=== PATIENT | male | born 1955 | race Caucasian/White ===

== ENCOUNTER 2016-09-23 08:22 | Outpatient (CLI) | payer MEDICARE, OTHER ==
[~2016-09-23] VITALS: Ht 190.5 cm; Wt 155.1 kg
[2016-09-23 08:32] VITALS: BP 166/98
[2016-09-23] MEDS ORDERED: ASCO-262 PO (08:52)
[2016-09-23] MEDS ORDERED: POLY255P PO (08:52)
[2016-09-23] MEDS ORDERED: SAW450CA4 PO (08:52)
[2016-09-23] MEDS ORDERED: ZINC50TA51 PO (08:52)
[2016-09-23] MEDS ORDERED: MULT-166 PO (08:52)
== END 2016-09-23 09:15 | disposition home or self-care (01) ==
LOC: PREOP 08:22
PROVIDERS: ATTEND Surgery
DX: Z01.818 Encounter for other preprocedural examination (principal); K80.20 Calculus of gallbladder without cholecystitis without obstruction; N43.40 Spermatocele of epididymis, unspecified
CPT/HCPCS: 87081

== ENCOUNTER 2016-09-30 06:25 | Day surgery (SDC) | payer MEDICARE, OTHER ==
[2016-09-30] VITALS (9 sets, daily range): BP systolic 121–170; BP diastolic 53–93
[~2016-09-30] VITALS: Ht 190.5 cm; Wt 154.2 kg
[~2016-09-30 06:25] MED LIST: ASCO-262 PO; MULT-166 PO; POLY255P PO; SAW450CA4 PO; ZINC50TA51 PO; ceFAZolin 2 GM/50 ML NS 50 ML ONE; metroNIDAZOLE 500MG/100ML IVPB 100 ML ONE
[2016-09-30] MEDS ORDERED: BUP/EPI 0.5% 1:200,000 (MARCAINE) 10ML VIAL IJ ONE ×2 (06:49→08:00)
--- NOTE | 2016-09-30 06:56 | Progress Note-Pre Operative ---
Pre-Operative Progress Note H&P Reviewed The H&P was reviewed, patient examined and no changes noted. Date Seen by Provider: Sep 30, 2016 Time Seen by Provider: 06:56 Date H&P Reviewed: Sep 30, 2016 Time H&P Reviewed: 06:56 Pre-Operative Diagnosis: LT SPERMATOCELE AND CHOLELITHIASIS TIM SHEPHERD MD Sep 30, 2016 6:56 am
--- NOTE | 2016-09-30 06:57 | Progress Note-Post Operative ---
Post-Operative Progess Note Surgeon (s)/Wash Helper (s) Surgeon TIM SHEPHERD MD Wash Helper: N/A Pre-Operative Diagnosis LT SPERMATOCELE AND CHOLELITHIASIS Post-Operative Diagnosis SAME Procedure & Operative Findings Date of Procedure 09/30/16 Procedure Performed/Findings LT SPERMATOCELECTOMY Anesthesia Type GENERAL Estimated Blood Loss Estimated blood loss (mL): NEGLIGIBLE Specimens/Packing Specimens Removed SPERMATOCELE Packin/4" DRAIN TIM SHEPHERD MD Sep 30, 2016 6:57 am
[2016-09-30] MEDS ORDERED: LIDOCAINE PF 2% 5 ML (XYLOCAINE) VIAL ONE (07:06)
[2016-09-30] MEDS ORDERED: SUCCINYLCHOLINE INJ 100 MG/5 ML SYR ONE (07:06)
[2016-09-30] MEDS ORDERED: proPOfol 200 MG/20 ML (DIPRIVAN) VIAL IV ONE (07:06)
[2016-09-30] MEDS ORDERED: ROCURONIUM 50 MG/5 ML (ZEMURON) VIAL IV ONE (07:06)
[2016-09-30] MEDS ORDERED: fentaNYL INJECTION 250 MCG/5 ML AMP ONE (07:06)
[2016-09-30] MEDS ORDERED: DEXAMETHASONE 10 MG/ML (DECADRON) 1 ML VIAL ONE (07:06)
[2016-09-30] MEDS ORDERED: ONDANSETRON 4 MG/2 ML (SDV) Z0FRAN ONE (07:06)
[2016-09-30] MEDS ORDERED: SEVOFLURANE (ULTANE) 15 ML INHAL SOLN ONE ×4 (07:06→10:25)
[2016-09-30] MEDS ORDERED: MIDAZOLAM 2 MG/2 ML (VERSED) VIAL ONE (07:07)
[2016-09-30] MEDS ORDERED: FAMOTIDINE 20MG/2ML IV (PEPCID) IV ONE (07:15)
[2016-09-30] MEDS ORDERED: ceFAZolin 2 GM/NS 50 ML IV ONE (07:15)
[2016-09-30] MEDS ORDERED: metroNIDAZOLE 500 MG/100 ML IVPB (PRE-MIX) IV ONE (07:15)
[2016-09-30] MEDS: LACTATED RINGERS 1,000 ML IV PRN ×3 (07:16→10:38)
--- NOTE | 2016-09-30 07:51 | Progress Note-Pre Operative ---
Pre-Operative Progress Note H&P Reviewed The H&P was reviewed, patient examined and no changes noted. Date Seen by Provider: Sep 17, 2016 Time Seen by Provider: 11:50 Date H&P Reviewed: Sep 30, 2016 Time H&P Reviewed: 07:51 Pre-Operative Diagnosis: Gallstones. Need for screening for colon cancer ROSIBEL DESHPANDE MD Sep 30, 2016 7:51 am
[2016-09-30] MEDS ORDERED: GLYCOPYRROLATE 0.2 MG/ML (ROBINUL) 2 ML VIAL ONE (09:42)
[2016-09-30] MEDS ORDERED: NEOSTIGMINE (BLOXIVERZ ) 1 MG/1ML 10 ML VIAL ONE (09:42)
[2016-09-30] MEDS ORDERED: morphine INJ 10 MG/ML 1ML (SYR OR VIAL) ONE (10:07)
[2016-09-30] MEDS ORDERED: LACTATED RINGERS 1,000 ML IV ONE ×2 (10:25→10:30)
[2016-09-30] MEDS: morphine INJ 10 MG/ML 1ML (SYR OR VIAL) IVP PRN ×2 (10:28→10:34)
[2016-09-30] MEDS: HYDROmorphone (DILAUDID) 2 MG/ML VIAL IVP PRN ×3 (10:40→11:00)
[2016-09-30] MEDS ORDERED: ONDANSETRON 4 MG/2 ML (SDV) Z0FRAN IVP PRN (10:45)
--- NOTE | 2016-09-30 11:22 | Operative Report ---
Operative Report Date of Procedure/Surgery Sep 30, 2016 Surgeon (s) ROSIBEL DESHPANDE MD Manager Of Development (s): N/A Post-Operative Diagnosis gallstones with chronic cholecystitis Sigmoid diverticulosis Procedure Performed 1.Robotic assisted cholecystectomy 2. Colonoscopy to cecum Description of Procedure Anesthesia Type: General Estimated blood loss (mL): NEGLIGIBLE Specimen(s) collected/removed gallbladder Packin/4" DRAIN Description of the Procedure Indication for procedure: This gentleman presented with gallstones and chronic cholecystitis. In addition, he was also scheduled to undergo excision of the spermatocele by the urologist. With regard to gallstones, he was offered robotic-assisted cholecystectomy. Concomitant screening colonoscopy was also arranged. Informed consent was obtained after reviewing the operative details and complications of postoperative bile leak, wound infection and cardiorespiratory dysfunction. Description of the procedure: He was placed supine on the operative table and general anesthesia induced using an endotracheal tube. Prophylactic antibiotics were administered intravenously. The urologist Dr. Meeks had initially completed his procedure and left the [place] drain. Abdomen was prepared and draped in the usual sterile manner. A supraumbilical incision was made and pneumoperitoneum established using a Veress needle. A 12 mm trocar was placed and anatomy visualized using the high definition, 3- dimensional laparoscope associated with da Guillermo system. Under direct view, I placed an 8 mm trocar over the right side abdomen and the visualized omentum was adherent to the subumbilical region. Therefore, I placed a 5 mm trocar over the right upper quadrant and took down the omental adhesions under direct view using the 3-dimensional laparoscope introduced via the right abdominal trocar. Subsequently, another 8 mm trocar was placed over the left side of the abdomen, followed by a 5 mm trocar over the left upper quadrant. The robotic system was then docked in place after placing the patient in reverse Trendelenburg position. Laparoscopic survey confirmed a thickened gallbladder minimal adhesions involving the omentum.the fundus of the gallbladder was retracted cephalad and omentum taken down using the hook cautery. Subsequently, the infundibulum of the gallbladder was grasped with a Cadiere forceps and peritoneum around Calot' s triangle incised using hook cautery, delineating the cystic duct and artery.both were controlled between locking clips. Cholecystectomy was then completed using the hook cautery as well. Spillage of bile and gallstones resulted therefore subhepatic space was thoroughly irrigated with saline. The spilled stones were placed in an Endo Catch bag along with the gallbladder the end of the operation The fascia over the supraumbilical incision was then closed using #1 Vicryl using the Ted Devendra device under direct view. Skin incisions were closed using 4-0 Vicryl, in a subcuticular fashion. 0.5 percent Marcaine with epinephrine was infiltrated along the incisions, both preemptively and at the conclusion of the operation. Once the incisions were covered with sterile dressing, we proceeded with colonoscopy. Colonoscopy: Digital rectal examination was unremarkable. The colonoscope was then introduced in the rectum and advanced to the cecum. The scope was then withdrawn slowly and the mucosa examined in a systematic fashion Finding: Sigmoid diverticulosis. No polyps were found. he tolerated the procedures well, was extubated in the operative and taken to recovery room in a stable condition Findings of the Procedure see operative report Allergies and Home Medications Allergies Coded Allergies: No Known Drug Allergies (Unverified , 09/23/16) Home Medications Ascorbate Calcium 500 Mg Tablet, 500 MG PO DAILY, (Reported) Multivitamin with Minerals 1 Each Tablet, 1 EACH PO DAILY, (Reported) Polyethylene Glycol 3350 255 Gm Powder, 17 GM PO DAILY, (Reported) Saw [place] Fruit 450 Mg Capsule, 1,800 MG PO DAILY, (Reported) take 4 (450mg) tabs Zinc Amino Acid Chelate 50 Mg Tablet, 50 MG PO DAILY, (Reported) ROSIBEL DESHPANDE MD Sep 30, 2016 11:22 am
[2016-09-30] MEDS ORDERED: HYDR-3820 PO (11:23)
[2016-09-30] MEDS ORDERED: CEPH-507 PO (11:24)
--- NOTE | 2016-09-30 11:25 | Discharge Inst-Simple/Standard ---
Discharge Inst-Standard Discharge Medications New, Converted or Re-Newed RX: RX on Chart Patient Instructions/Follow Up Plan of Care/Instructions/FU: follow-up with Dr. Meeks tomorrow to have the drain removed. Follow-up with me in 3 weeks. Incentive spirometry. Band-Aids of in 48 hours. Activity as Tolerated: Yes Discharge Diet: No Restrictions ROSIBEL DESHPANDE MD Sep 30, 2016 11:25 am
--- NOTE | 2016-09-30 14:11 | OPERATIVE REPORT ---
DATE OF SERVICE: 09/30/2016 PREOPERATIVE DIAGNOSIS: Left spermatocele. POSTOPERATIVE DIAGNOSIS: Left spermatocele. OPERATION PERFORMED: Left spermatocelectomy. SURGEON: Tim Shepherd MD ANESTHESIA: General. COMPLICATIONS: None. PROCEDURE: Under satisfactory general anesthesia with the patient in supine position, the abdomen, genitalia, and thigh were prepped and draped in the usual sterile fashion. Incision was made in the median raphe of the scrotum, carried through the left scrotal compartment. The testicle as well as the medium-sized spermatocele was delivered into the surgical opening. The testicle was removed and the bleeders were cauterized. The spermatocele sac was fully excised. The edges were ligated and were sutured with running 4-0 chromic catgut and hemostatic, and also to prevent recurrence of the spermatocele. Bleeders were cauterized and hemostasis was complete. The testicle was replaced into the scrotum, which was drained with a quarter of an inch Lisa drain brought through a separate stab wound at the bottom of the scrotum and secured in position with 3-0 chromic catgut. Closure was performed in 2 layers after replacing the testicle inside the scrotum, the dartos with running 3-0 chromic catgut, and the skin with interrupted 4-0 Vicryl. Telfa, fluff, and scrotal support were applied. Estimated blood loss was negligible. Needle, sponge, and instrument counts were correct x2. The patient tolerated the procedure and anesthesia well, and Dr. Pereira proceeded with his surgery that he will dictate. Job ID: [id number] DocumentID: [id number] Dictated Date: 09/30/2016 08:51:14 Satellite Project Site Monitor Date: 09/30/2016 10:51:03 Dictated By: TIM SHEPHERD MD
[2016-09-30] MEDS ORDERED: ONDANSETRON 4 MG (ZOFRAN) ORAL DISSOLVE TAB PO PRN (17:30)
[2016-09-30] MEDS: HYDROcodone/APAP 5 MG/325 MG (LORTAB) TAB PO PRN (19:54)
[2016-10-01] MEDS: HYDROcodone/APAP 5 MG/325 MG (LORTAB) TAB PO PRN ×2 (00:39→06:57)
[2016-10-01 04:00] VITALS: BP 134/63
[2016-10-01 07:39] VITALS: BP 135/63
[2016-10-01 11:49] VITALS: BP 135/66
[2016-10-01 12:00] VITALS: BP 135/66
--- NOTE | 2016-10-01 12:12 | Progress Note-Urology ---
Progress Note-Urology Progress Notes/Assess & Plan Progress/Assessment & Plan RECOVERED WELL. VOIDED POST DC LOPEZ WITH NO ISSUES. SCROTUM LOOKS WELL, MINIMAL BLEEDING, PAMELA DC'ED INSTRUCTIONS AND F/U APPOINTMENT GIVEN WELL RX Final Diagnosis LT SPERMATOCELE TIM SHEPHERD MD Oct 01, 2016 12:12 pm
--- NOTE | 2016-10-01 13:14 | Anesthesia-General Post-Op ---
General Patient Condition Mental Status/LOC: Same as Preop Cardiovascular: Satisfactory Nausea/Vomiting: Absent Respiratory: Satisfactory Pain: Controlled Complications: Absent Post Op Complications Complications None Follow Up Care/Instructions Patient Instructions None needed. Anesthesia/Patient Condition Patient Condition Patient is doing well, no complaints, stable vital signs, no apparent adverse anesthesia problems. No complications reported per nursing. CAROLYN PIMENTEL CRNA Oct 01, 2016 13:14
== END 2016-10-01 13:01 | disposition home or self-care (01) ==
LOC: SDC 06:25 → 4TH 16:35 → SDC 10-01 13:01
PROVIDERS: ATTEND Urology
DX: N43.40 Spermatocele of epididymis, unspecified (principal); K80.20 Calculus of gallbladder without cholecystitis without obstruction; K57.30 Diverticulosis of large intestine without perforation or abscess without bleeding; Z79.899 Other long term (current) drug therapy; I10 Essential (primary) hypertension; Z87.891 Personal history of nicotine dependence; F32.9 Major depressive disorder, single episode, unspecified; E66.01 Morbid (severe) obesity due to excess calories; Z68.41 Body mass index [BMI] 40.0-44.9, adult
CPT/HCPCS: 94664

== ENCOUNTER 2019-10-04 08:56 | Emergency (ER) | payer MEDICARE ==
[~2019-10-04] VITALS: Ht 190.5 cm; Wt 159.1 kg
[~2019-10-04 08:56] MED LIST changes: +ACHYD1T PO; +CEPH-507 PO; -POLY255P PO; +POLY255P16 PO; -SAW450CA4 PO; +SAW450CA7 PO; -ceFAZolin 2 GM/50 ML NS 50 ML ONE; -metroNIDAZOLE 500MG/100ML IVPB 100 ML ONE
[2019-10-04] MEDS ORDERED: predniSONE 20 MG TAB PO ONE (09:15)
--- NOTE | 2019-10-04 09:22 | ED General ---
General Chief Complaint: Neuro-Stroke Like Symptoms Stated Complaint: FACIAL DROOPING History of Present Illness Date Seen by Provider: Oct 04, 2019 Time Seen by Provider: 09:17 Initial Comments Patient presenting to the emergency department for evaluation of 2 primary complaints. He says that a day or 2 ago he started noticing dripping on his left face that he cannot close his eye completely. He says that she also has some soreness in his left ear that he has been dealing with for about a month and his primary care provider Dr. king has him on some eardrops currently and appear to be helping somewhat. He denies any pain other than his ear no fevers chills nausea vomiting or other weakness numbness or tingling other than the left side of the face being weaker than the right. He says he is not a diabetic. He is in no obvious distress. Allergies and Home Medications Allergies Coded Allergies: No Known Drug Allergies (Unverified , 09/23/16) Home Medications Ascorbate Calcium 500 Mg Tablet, 500 MG PO DAILY, (Reported) Cephalexin 500 Mg Capsule, 500 MG PO BID Prescribed by: ROSIBEL DESHPANDE on 09/30/16 1124 Hydrocodone Bit/Acetaminophen 1 Each Tablet, 1 TAB PO Q4H PRN for PAIN-MILD TO MODERATE Prescribed by: ROSIBEL DESHPANDE on 09/30/16 1123 Multivitamin with Minerals 1 Each Tablet, 1 EACH PO DAILY, (Reported) Polyethylene Glycol 3350 255 Gm Powder, 17 GM PO DAILY, (Reported) Saw [place] Fruit 450 Mg Capsule, 1,800 MG PO DAILY, (Reported) take 4 (450mg) tabs Zinc Amino Acid Chelate 50 Mg Tablet, 50 MG PO DAILY, (Reported) Patient Home Medication List Home Medication List Reviewed: Yes Review of Systems Review of Systems Constitutional: no symptoms reported EENTM: ear pain Respiratory: no symptoms reported Cardiovascular: no symptoms reported Gastrointestinal: no symptoms reported Genitourinary: no symptoms reported Musculoskeletal: no symptoms reported Skin: no symptoms reported Psychiatric/Neurological: Weakness Hematologic/Lymphatic: No Symptoms Reported Immunological/Allergic: no symptoms reported Past Xnhcknd-Vtnlaj-Xrlupv Hx Patient Social History Alcohol Beverage of Choice: Beer, Whiskey Former Smoker, Quit: Sep 23, 2001 Recent Foreign Travel: No Contact w/Someone Who Travel: No Recent Hopitalizations: No Seasonal Allergies Seasonal Allergies: Yes (at times) Past Medical History Surgeries: Yes (umb hernia) Respiratory: No Cardiac: Yes (occasional edema) Neurological: No Genitourinary: Yes (overactive bladder) Gastrointestinal: Yes (umbillical hernia, fatty liver) Chronic Constipation, Gall Bladder Disease Musculoskeletal: Yes (pinched nerve in back, causes pain) Endocrine: No HEENT: No Loss of Vision: Denies Hearing Impairment: Denies Cancer: No Depression Integumentary: No Blood Disorders: No Family Medical History Alcoholism 19 FATHER FH: bipolar disorder G8 BROTHER FH: mental illness 19 MOTHER FH: suicide 19 FATHER Physical Exam Vital Signs Capillary Refill : Height, Weight, BMI Height: 6'3.00" Weight: 340lbs. 0.0oz. [id number]; 42.5 BMI Method: General Appearance: No Apparent Distress, WD/WN HEENT: PERRL/EOMI, TMs Normal Neck: Supple Respiratory: No Respiratory Distress Cardiovascular: Regular Rate, Rhythm Back: Normal Inspection Extremity: Normal Capillary Refill, Normal Inspection Neurologic/Psychiatric: Alert, Oriented x3, Facial Droop (patient has moderate left-sided facial droop in addition to just being able to close his left eye but is definitely unequal in the right and he has minimal upper movement of his left forehead when trying to raise his eyebrows) Skin: Warm/Dry Progress/Results/Core Measures Suspected Sepsis SIRS Temperature: Pulse: Respiratory Rate: Blood Pressure / Mean: Results/Orders My Orders Orders - KELSI MAKI DO Prednisone Tablet (Deltasone Tablet) (10/04/19 09:15) Vital Signs/I&O Capillary Refill : Progress Note : Progress Note 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 Will start him on 80 mg of prednisone daily and will go ahead and start him on antivirals as well. I recommended using artificial tears during the day and then at night using erythromycin ointment and taping his eye shut. Patient told to follow with his primary care provider within 2-3 days and come back to the ED sooner with any new worsening pain neurologic changes with or general concerns. Departure Impression Primary Impression: Monson's palsy Disposition: 01 HOME, SELF-CARE Condition: Stable Departure-Patient Inst. Referrals: SELF,JOSE QURESHI (PCP/Family) Primary Care Physician Patient Instructions: Monson's Palsy Add. Discharge Instructions: During the day put artificial tears in your eyes every hour. At night, tape your eye shut after putting the ointment in the eye. Follow with primary as soon as you can and come back here with any new or worsening symptoms. Thank you. All discharge instructions reviewed with patient and/or family. Voiced und erstanding. Scripts Erythromycin Base (Erythromycin Opthalmic Ointment) 1 Gm Oint...g. 0 OP qhs, #1 TUBE 1/2 inch Prov: KELSI MAKI DO 10/04/19 Valacyclovir HCl (Valtrex) 1,000 Mg Tablet 1000 MG PO BID, #12 TAB Prov: KELSI MAKI DO 10/04/19 Prednisone (Prednisone) 20 Mg Tab 80 MG PO DAILY, #24 TAB 0 Refills Prov: KELSI MAKI DO 10/04/19 KELSI MAKI DO Oct 04, 2019 09:22
[2019-10-04] MEDS ORDERED: VALA10004 PO (09:25)
[2019-10-04] MEDS ORDERED: ERYT1OIN6 OP (09:25)
[2019-10-04] MEDS ORDERED: PRD20T PO (09:25)
[2019-10-04 09:38] VITALS: BP 181/138
== END 2019-10-04 09:38 | disposition home or self-care (01) ==
LOC: EDUNIT# 08:56 → ER FS 08:59
DX: G51.0 Bell's palsy (principal); Z87.891 Personal history of nicotine dependence
CPT/HCPCS: 99283

== ENCOUNTER 2021-03-06 11:10 | Inpatient (IN) | payer MEDICARE ==
[~2021-03-06] VITALS: Ht 190.5 cm; Wt 121.1 kg
[~2021-03-06 11:10] MED LIST changes: +ERYT1OIN6 OP; +PRD20T PO; +VALA10004 PO
--- NOTE | 2021-03-06 11:20 | ED General ---
General Stated Complaint: LOW STATS Source of Information: Patient, EMS Exam Limitations: Other (clinical ) History of Present Illness Date Seen by Provider: Mar 06, 2021 Time Seen by Provider: 11:10 Initial Comments Patient is a 66-year-old male with history of polysubstance abuse who is found confused, disheveled, covered in feces and urine at a local hotel. EMS and police were called to assist with the eviction of patient. Patient tachycardic, confused with labored breathing on EMS arrival. Patient noted to have excoriations to his thighs, diabetic foot sore and ulcer to scrotum. Patient is initially tachycardic in 120s and hypertensive tachypneic with inability to initially to obtain accurate oxygen saturation. Timing/Duration: Other Severity: Moderate Modifying Factors: improves with Other Associated Systoms: Other Allergies and Home Medications Allergies Coded Allergies: No Known Drug Allergies (Unverified , 09/23/16) Patient Home Medication List Home Medication List Reviewed: Yes Ascorbate Calcium (Vitamin C) 500 Mg Tablet, 500 MG PO DAILY, (Reported) Entered as Reported by: TERESA TY on 09/23/1652 Cephalexin (Keflex) 500 Mg Capsule, 500 MG PO BID Prescribed by: ROSIBEL DESHPANDE on 09/30/16 112 Erythromycin Base (Erythromycin Opthalmic Ointment) 1 Gm Oint...g., 0 OP qhs Prescribed by: KELSI MAKI on 10/04/19 0925 Hydrocodone Bit/Acetaminophen (HYDROcodone/APAP 10/325 TABLET) 1 Each Tablet, 1 TAB PO Q4H PRN for PAIN-MILD TO MODERATE Prescribed by: ROSIBEL DESHPANDE on 09/30/16 1123 Multivitamin with Minerals (Multivitamins with Minerals) 1 Each Tablet, 1 EACH PO DAILY, (Reported) Entered as Reported by: TERESA TY on 09/23/16 0852 Polyethylene Glycol 3350 (Polyethylene Glycol 3350) 255 Gm Powder, 17 GM PO DAILY, (Reported) Entered as Reported by: TERESA TY on 09/23/16 08 Prednisone (Prednisone) 20 Mg Tab, 80 MG PO DAILY Prescribed by: KELSI MAKI on 10/04/19 0925 Saw [place] Fruit (Saw [place]) 450 Mg Capsule, 1,800 MG PO DAILY, (Reported) Entered as Reported by: TERESA TY on 09/23/16 0852 Valacyclovir HCl (Valtrex) 1,000 Mg Tablet, 1,000 MG PO BID Prescribed by: KELSI MAKI on 10/04/19 0925 Zinc Amino Acid Chelate (Zinc) 50 Mg Tablet, 50 MG PO DAILY, (Reported) Entered as Reported by: TERESA TY on 09/23/16 0852 Review of Systems Review of Systems Constitutional: see HPI EENTM: see HPI Respiratory: see HPI Cardiovascular: see HPI Gastrointestinal: see HPI Genitourinary: see HPI Musculoskeletal: see HPI Skin: see HPI Psychiatric/Neurological: See HPI Hematologic/Lymphatic: See HPI Immunological/Allergic: see HPI All Other Systems Reviewed Negative Unless Noted: Yes Past Tiirpyq-Yprhwt-Susghx Hx Patient Social History Tobacco Use?: Yes Seasonal Allergies Seasonal Allergies: Yes (at times) Past Medical History Surgeries: Yes (umb hernia) Respiratory: No Cardiac: Yes (occasional edema) Neurological: No Genitourinary: Yes (overactive bladder) Gastrointestinal: Yes (umbillical hernia, fatty liver) Chronic Constipation, Gall Bladder Disease Musculoskeletal: Yes (pinched nerve in back, causes pain) Endocrine: No HEENT: No Loss of Vision: Denies Hearing Impairment: Denies Cancer: No Depression Integumentary: No Blood Disorders: No Family Medical History Alcoholism 19 FATHER FH: bipolar disorder G8 BROTHER FH: mental illness 19 MOTHER FH: suicide 19 FATHER Physical Exam Vital Signs Vital Signs - First Documented 03/06/21 11:10 Pulse Ox 95 O2 Delivery Non Rebreather O2 Flow Rate 15.00 Capillary Refill : Height, Weight, BMI Height: 6'3.00" Weight: 340lbs. 0.0oz. 154.400341mb; 43.00 BMI Method: General Appearance: Other (Disheveled, agitated, tachypneic and confused. Covered in feces) Eyes: Bilateral Eye Normal Inspection, Bilateral Eye PERRL, Bilateral Eye EOMI HEENT: PERRL/EOMI, Other (Dry mucous membranes) Neck: Supple, Other (Surgical scar right neck) Respiratory: Decreased Breath Sounds, Rhonci, Other (Tachypnea) Cardiovascular: Tachycardia Gastrointestinal: Non Tender, Soft Back: Normal Inspection, No CVA Tenderness Neurologic/Psychiatric: Alert, Other (Disoriented to place and time) Skin: Other (Excoriations to thighs, ulcer to scrotum and diabetic pressure ulcer to right great toe pad) Focused Exam Sepsis Stage: Sepsis (11) Lactate Level 03/06/21 12:04: Lactic Acid Level 5.84*H Time of Focused Exam: 11:20 Respiratory: Decreased Breath Sounds, Rhonci Cardiovascular: Tachycardia Skin: rash, rash on exposed areas, ulcerations on exposed areas Lactic Acid Level Laboratory Tests Test 03/06/21 12:04 Lactic Acid Level 5.84 MMOL/L (0.50-2.00) *H Within 3hrs of presentation: Admin fluids, Admin ABX Progress/Results/Core Measures Suspected Sepsis SIRS Temperature: Pulse: Respiratory Rate: Laboratory Tests 03/06/21 11:15: White Blood Count 16.7H Blood Pressure / Mean: 03/06/21 12:04: Lactic Acid Level 5.84*H Laboratory Tests 03/06/21 11:15: INR Comment 1.3, Platelet Count 492H 03/06/21 12:03: Creatinine 3.41H, Total Bilirubin 1.1H Results/Orders Lab Results Laboratory Tests Test 03/06/21 11:15 03/06/21 11:23 03/06/21 11:29 03/06/21 12:03 Range/Units White Blood Count 16.7 H 4.3-11.0 10^3/uL Red Blood Count 6.05 H 4.30-5.52 10^6/uL Hemoglobin 17.8 H 13.3-17.7 g/dL Hematocrit 58 H 40-54 % Mean Corpuscular Volume 96 80-99 fL Mean Corpuscular Hemoglobin 29 25-34 pg Mean Corpuscular Hemoglobin Concent 31 L 32-36 g/dL Red Cell Distribution Width 15.7 H 10.0-14.5 % Platelet Count 492 H 130-400 10^3/uL Mean Platelet Volume 12.5 H 9.0-12.2 fL Immature Granulocyte % (Auto) 1 % Neutrophils (%) (Auto) 84 H 42-75 % Lymphocytes (%) (Auto) 8 L 12-44 % Monocytes (%) (Auto) 6 0-12 % Eosinophils (%) (Auto) 0 0-10 % Basophils (%) (Auto) 0 0-10 % Neutrophils # (Auto) 14.0 H 1.8-7.8 10^3/uL Lymphocytes # (Auto) 1.4 1.0-4.0 10^3/uL Monocytes # (Auto) 0.9 0.0-1.0 10^3/uL Eosinophils # (Auto) 0.0 0.0-0.3 10^3/uL Basophils # (Auto) 0.1 0.0-0.1 10^3/uL Immature Granulocyte # (Auto) 0.2 H 0.0-0.1 10^3/uL Neutrophils % (Manual) 83 % Lymphocytes % (Manual) 8 % Monocytes % (Manual) 7 % Eosinophils % (Manual) 1 % Metamyelocytes % 1 % Platelet Estimate INCREASED Blood Morphology Comment NORMAL Prothrombin Time 16.3 H 12.2-14.7 SEC INR Comment 1.3 0.8-1.4 Activated Partial Thromboplast Time 39 H 24-35 SEC Urine Color YELLOW Urine Clarity TURBID Urine pH 5.5 5-9 Urine Specific [place] >=1.030 1.016-1.022 Urine Protein TRACE H NEGATIVE Urine Glucose (UA) TRACE H NEGATIVE Urine Ketones NEGATIVE NEGATIVE Urine Nitrite NEGATIVE NEGATIVE Urine Bilirubin 2+ H NEGATIVE Urine Urobilinogen 2.0 < = 1.0 MG/DL Urine Leukocyte Esterase NEGATIVE NEGATIVE Urine RBC (Auto) 1+ H NEGATIVE Urine RBC 2-5 H /HPF Urine WBC 2-5 /HPF Urine Squamous Epithelial Cells RARE /HPF Urine Crystals PRESENT H /LPF Urine Amorphous Sediment FEW SREE URATES H /LPF Urine Bacteria NEGATIVE /HPF Urine Casts PRESENT /LPF Urine Hyaline Casts >50 H /LPF Urine Mucus LARGE H /LPF Urine Culture Indicated NO Urine Opiates Screen NEGATIVE NEGATIVE Urine Oxycodone Screen NEGATIVE NEGATIVE Urine Methadone Screen NEGATIVE NEGATIVE Urine Propoxyphene Screen NEGATIVE NEGATIVE Urine Barbiturates Screen NEGATIVE NEGATIVE Ur Tricyclic Antidepressants Screen NEGATIVE NEGATIVE Urine Phencyclidine Screen NEGATIVE NEGATIVE Urine Amphetamines Screen NEGATIVE NEGATIVE Urine Methamphetamines Screen POSITIVE H NEGATIVE Urine Benzodiazepines Screen NEGATIVE NEGATIVE Urine Cocaine Screen NEGATIVE NEGATIVE Urine Cannabinoids Screen NEGATIVE NEGATIVE Blood Gas Puncture Site LT. BRACHIAL Blood Gas Patient Temperature 37.2 Arterial Blood pH 7.43 7.37-7.43 Arterial Blood Partial Pressure CO2 29 L 35-45 MMHG Arterial Blood Partial Pressure O2 70 L 79-93 MMHG Arterial Blood HCO3 19 L 23-27 MMOL/L Arterial Blood Total CO2 20.1 L 21.0-31.0 MMOL/L Arterial Blood Oxygen Saturation 94 94-100 % Arterial Blood Base Excess -4.0 L -2.5-2.5 MMOL/L Theodore Test YES-POS Blood Gas Ventilator Setting NO Blood Gas Inspired Oxygen 15 LPM NR Sodium Level 162 *H 135-145 MMOL/L Potassium Level 5.2 H 3.6-5.0 MMOL/L Chloride Level 118 H 98-107 MMOL/L Carbon Dioxide Level 21 21-32 MMOL/L Anion Gap 23 H 5-14 MMOL/L Blood Urea Nitrogen 105 *H 7-18 MG/DL Creatinine 3.41 H 0.60-1.30 MG/DL Estimat Glomerular Filtration Rate 19 BUN/Creatinine Ratio 31 Glucose Level 232 H 70-105 MG/DL Calcium Level 8.8 8.5-10.1 MG/DL Corrected Calcium 9.6 8.5-10.1 MG/DL Total Bilirubin 1.1 H 0.1-1.0 MG/DL Aspartate Amino Transf (AST/SGOT) 31 5-34 U/L Alanine Aminotransferase (ALT/SGPT) 23 0-55 U/L Alkaline Phosphatase 104 40-136 U/L Troponin I 0.33 *H <0.30 NG/ML Total Protein 9.0 H 6.4-8.2 GM/DL Albumin 3.0 L 3.2-4.5 GM/DL Test 03/06/21 12:04 03/06/21 13:50 Range/Units Lactic Acid Level 5.84 *H 0.50-2.00 MMOL/L Magnesium Level 4.1 H 1.6-2.4 MG/DL Serum Alcohol < 10 <10 MG/DL My Orders Orders - LUIS PANCHAL DO Cbc With Automated Diff (03/06/21 11:17) Comprehensive Metabolic Panel (03/06/21 11:17) Blood Culture (03/06/21 11:17) Sputum Culture (03/06/21 11:17) Urine Culture (03/06/21 11:17) Protime With Inr (03/06/21 11:17) Partial Thromboplastin Time (03/06/21 11:17) Chest 1 View Ap/Pa Only (03/06/21 11:17) Ed Iv/Invasive Line Start (03/06/21 11:17) Ed Iv/Invasive Line Start (03/06/21 11:17) Vital Signs Adult Sepsis Patie Q15M (03/06/21 11:17) O2 (03/06/21 11:17) Remove Rings In Anticipation O (03/06/21 11:17) Lactic Acid Analyzer (03/06/21 11:17) Ns Iv 1000 Ml (Sodium Chloride 0.9%) (03/06/21 11:30) Arterial Blood Gas (03/06/21 11:17) Ct Head Wo (03/06/21 11:17) Ekg-Prn For Chest Pain Or Rhyt (03/06/21 11:17) Troponin I Fs (03/06/21 11:17) Accucheck Achs ACHS (03/06/21 11:17) Haloperidol Injection (Haldol Injectio (03/06/21 11:30) Manual Differential (03/06/21 11:15) Alcohol (03/06/21 11:57) Drug Screen Stat (Urine) (03/06/21 11:57) Ammonia (03/06/21 12:01) Magnesium (03/06/21 12:01) Piperacillin Sodium/Tazobactam (Zosyn Vi (03/06/21 12:15) Lorazepam Injection (Ativan Injection) (03/06/21 12:30) Ua Culture If Indicated (03/06/21 12:27) Ns Iv 1000 Ml (Sodium Chloride 0.9%) (03/06/21 13:00) Covid 19 Inhouse Test (03/06/21 13:42) Creatine Kinase (03/06/21 13:42) Influenza A And B By Pcr (03/06/21 13:42) Isolation Central Supply Req (03/06/21 13:42) Medications Given in ED Current Medications Medications Dose Ordered Sig/Jessica Route Start Time Stop Time Status Last Admin Dose Admin Haloperidol Lactate 2.5 mg ONCE ONCE IV 03/06/21 11:30 03/06/21 11:31 DC 03/06/21 11:30 2.5 MG Lorazepam 0.5 mg ONCE ONCE IVP 03/06/21 12:30 03/06/21 12:31 DC 03/06/21 12:31 0.5 MG Piperacillin Sod/ Tazobactam Sod 4.5 gm/Sodium Chloride 100 ml @ 200 mls/hr ONCE ONCE IV 03/06/21 12:15 03/06/21 12:44 DC 03/06/21 12:19 200 MLS/HR Vital Signs/I&O 03/06/21 03/06/21 03/06/21 11:10 11:39 11:39 Temp 36.1 Pulse 112 Resp 19 B/P (MAP) 107/82 (90) Pulse Ox 95 O2 Delivery Non Rebreather Non Rebreather Non Rebreather O2 Flow Rate 15.00 15.00 15.00 Capillary Refill : Departure Communication (Admissions) CT head: No acute findings per radiology report. Chest x-ray: Bilateral infiltrates, cardiomegaly EKG: Sinus tach, rate 115, frequent PVCs, nonspecific T wave changes, Patient septic, encephalopathic with pneumonia and acute kidney injury. IV fluids and antibiotics given. Haldol and Ativan given for agitation. Patient is positive for methamphetamines. Vital signs stable on monitor. Dr. Ocasio accepts patient to [facility] [place] [facility]. Covid and CK swabs pending. Critical care time: 45 minutes Impression Primary Impression: Sepsis Additional Impressions: Pneumonia Acute kidney injury Hypernatremia Encephalopathy acute Methamphetamine intoxication Disposition: ADMITTED INPATIENT Condition: Critical Admissions Decision to Admit Reason: Admit from ER (General) Decision to Admit/Date: Mar 06, 2021 Time/Decision to Admit Time: 13:30 (Dr. Ocasio) Departure-Patient Inst. Referrals: JOSE RON MD (PCP/Family) Primary Care Physician LUIS PANCHAL DO Mar 06, 2021 11:20
[2021-03-06 11:30] LABS: BASOPHILS # (AUTO) 0.1 10^3/uL (0.0-0.1); BASOPHILS % (AUTO) 0 % (0-10); EOSINOPHILS % (AUTO) 0 % (0-10); HEMATOCRIT 58 % (40-54); HEMOGLOBIN 17.8 g/dL (13.3-17.7); LYMPHOCYTES # (AUTO) 1.4 10^3/uL (1.0-4.0); LYMPHOCYTES % (AUTO) 8 % (12-44); MEAN CORPUSCULAR HEMOGLOBIN 29 pg (25-34); MEAN CORPUSCULAR HGB CONC 31 g/dL (32-36); MEAN CORPUSCULAR VOLUME 96 fL (80-99); MEAN PLATELET VOLUME 12.5 fL (9.0-12.2); MONOCYTES # (AUTO) 0.9 10^3/uL (0.0-1.0); MONOCYTES % (AUTO) 6 % (0-12); NEUTROPHILS % (AUTO) 84 % (42-75); PLATELET COUNT 492 10^3/uL (130-400); WHITE BLOOD COUNT 16.7 10^3/uL (4.3-11.0)
[2021-03-06] MEDS ORDERED: NS IV 1000 ML 1,000 ML IV SCH (11:30)
[2021-03-06] MEDS ORDERED: HALOPERIDOL 5 MG/ML (HALDOL) VIAL IV ONE (11:30)
[2021-03-06 11:43] LABS: ABG PCO2 29 MMHG (35-45); ABG PH 7.43 (7.37-7.43); ABG PO2 70 MMHG (79-93)
[2021-03-06 11:44] LABS: ABG OXYGEN SATURATION 94 % (94-100); ABG TCO2 20.1 MMOL/L (21.0-31.0)
[2021-03-06 11:46] LABS: ALLENS TEST YES-POS
[2021-03-06 11:47] LABS: INSPIRED O2 15 LPM NR; PATIENT TEMP 37.2; VENTILATOR NO
[2021-03-06 11:55] LABS: INR 1.3 (0.8-1.4); PROTHROMBIN TIME PATIENT 16.3 SEC (12.2-14.7)
[2021-03-06 11:57] LABS: EOSINOPHILS % (MANUAL) 1 %; LYMPHOCYTES % (MANUAL) 8 %; METAMYELOCYTES % 1 %; MONOCYTES % (MANUAL) 7 %; NEUTROPHILS % (MANUAL) 83 %; PLATELET ESTIMATE INCREASED; RBC MORPH NORMAL
[2021-03-06] MEDS ORDERED: PIPERACILLIN SODIUM/TAZOBACTAM 4.5 GM in NS (IVPB) 100 ML IV ONE (12:15)
--- NOTE | 2021-03-06 12:19 | Diagnostic Imaging Report ---
PROCEDURE: CT head without contrast. TECHNIQUE: Multiple contiguous axial images were obtained through the brain without the use of intravenous contrast. Auto Exposure Controls were utilized during the CT exam to meet ALARA standards for radiation dose reduction. INDICATION: Altered mental status. Sepsis. COMPARISON: None. FINDINGS: Congenital absence of the corpus callosum. Moderate to advanced generalized parenchymal volume loss. 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 No CT evidence of an acute territorial infarction. No intracranial hemorrhage, mass effect, hydrocephalus or extra-axial fluid collections. Mucosal thickening in the ethmoid and sphenoid sinuses. The mastoids are clear. Osseous structures are intact. IMPRESSION: 1. No acute intracranial CT findings. 2. Congenital absence of the corpus callosum. Dictated by: Dictated on workstation # [id number]
--- NOTE | 2021-03-06 12:22 | Diagnostic Imaging Report ---
CLINICAL INDICATION: Patient with shortness of air and altered mental status and low oxygen. EXAM: Portable chest x-ray upright view. COMPARISON: None. FINDINGS: There is small amount of patchy airspace opacities involving both upper lobes and left lung base region. There is no pleural effusion or pneumothorax. There is mild cardiomegaly. Pulmonary vasculature is within normal limits. There are hypertrophic spurs involving the thoracic spine. IMPRESSION: 1: There are patchy infiltrates involving both upper lobes and left lower lung field region concerning for infiltrates/pneumonia. 2: There is mild cardiomegaly with no significant pulmonary vascular congestion. Dictated by: Dictated on workstation # [id number]
[2021-03-06] MEDS ORDERED: LORazepam INJ 2 MG/ML (ATIVAN) VIAL IVP ONE (12:30)
[2021-03-06 12:32] LABS: CLARITY,URINE TURBID; COLOR,URINE YELLOW; GLUCOSE, URINE (UA) TRACE (NEGATIVE); KETONES,URINE NEGATIVE (NEGATIVE); LEUKOCYTE ESTERASE ,URINE NEGATIVE (NEGATIVE); NITRITE,URINE NEGATIVE (NEGATIVE); PH,URINE 5.5 (5-9); PROTEIN,URINE TRACE (NEGATIVE)
[2021-03-06 12:42] LABS: AMPHETAMINE SCREEN, URINE NEGATIVE (NEGATIVE); BENZODIAZEPINES SCREEN URINE NEGATIVE (NEGATIVE); COCAINE SCREEN URINE NEGATIVE (NEGATIVE)
[2021-03-06 12:43] LABS: BARBITURATE SCREEN URINE NEGATIVE (NEGATIVE); CANNABINOID SCREEN, URINE NEGATIVE (NEGATIVE); METHADONE STAT NEGATIVE (NEGATIVE); METHAMPHETAMINE SCREEN URINE S POSITIVE (NEGATIVE); OPIATE SCREEN URINE NEGATIVE (NEGATIVE); OXYCODONE STAT NEGATIVE (NEGATIVE); PROPOXYPHENE STAT NEGATIVE (NEGATIVE); TRICYCLIC ANTIDEPRESSANTS SCRE NEGATIVE (NEGATIVE)
[2021-03-06 12:54] LABS: POTASSIUM 5.2 MMOL/L (3.6-5.0)
[2021-03-06 12:55] LABS: CALCIUM 8.8 MG/DL (8.5-10.1); CREATININE SERUM 3.41 MG/DL (0.60-1.30)
[2021-03-06 12:56] LABS: BILIRUBIN,TOTAL 1.1 MG/DL (0.1-1.0)
[2021-03-06] MEDS: NS IV 1000 ML 1,000 ML IV SCH ×2 (13:03→16:49)
[2021-03-06 13:06] LABS: MAGNESIUM 4.1 MG/DL (1.6-2.4)
[2021-03-06 13:20] LABS: BACTERIA,URINE NEGATIVE /HPF; SQUAMOUS EPITHELIAL CELL,UR RARE /HPF
[2021-03-06 13:21] LABS: AMORPHOUS SEDIMENT,UR FEW AMOR URATES /LPF; HYALINE CASTS, URINE >50 /LPF
[2021-03-06 13:22] LABS: BILIRUBIN,URINE 2+ (NEGATIVE)
[2021-03-06 15:45] LABS: AMMONIA 54 UMOL/L (11-32)
[2021-03-06] MEDS ORDERED: MELATONIN 3 MG TABLET PO PRN (16:15)
[2021-03-06] MEDS ORDERED: polyethylene glycoL POWDER 17 GM (MIRALAX) PACK PO PRN (16:15)
[2021-03-06] MEDS ORDERED: ONDANSETRON 4 MG/2 ML (SDV) Z0FRAN IV PRN (16:15)
[2021-03-06] MEDS ORDERED: BISACODYL 10 MG SUPP (DULCOLAX) PR PRN (16:15)
[2021-03-06] MEDS ORDERED: ANTACID SUSP 30 ML UDC (MYLANTA) PO PRN (16:15)
[2021-03-06] MEDS ORDERED: diphenhydrAMINE 25 MG TAB (BENADRYL) PO PRN (16:15)
[2021-03-06] MEDS ORDERED: HYDROmorphone 2 MG/ML VIAL (DILAUDID) IVP PRN (16:15)
[2021-03-06] MEDS ORDERED: NS IV 1000 ML 2,100 ML IV ONE (16:15)
[2021-03-06] MEDS ORDERED: diphenhydrAMINE 50 MG/ML INJ (BENADRYL) IVP PRN (16:15)
[2021-03-06] MEDS ORDERED: HALOPERIDOL 5 MG/ML (HALDOL) VIAL IM PRN (16:15)
[2021-03-06] MEDS ORDERED: LORazepam INJ 2 MG/ML (ATIVAN) VIAL IVP PRN (16:15)
[2021-03-06] MEDS ORDERED: NALOXONE 0.4 MG/ML 1 ML (NARCAN) VIAL IV PRN (16:15)
--- NOTE | 2021-03-06 17:45 | Tele-ICU Consult ---
History of Present Illness History of Present Illness Date Seen by Provider: Mar 06, 2021 Time Seen by Provider: 17:44 Date of Admission Allergies and Home Medications Allergies Coded Allergies: No Known Drug Allergies (Unverified , 09/23/16) Home Medications Ascorbate Calcium 500 Mg Tablet, 500 MG PO DAILY, (Reported) Cephalexin 500 Mg Capsule, 500 MG PO BID Prescribed by: ROSIBEL DESHPANDE on 09/30/16 112 Erythromycin Base 1 Gm Oint...g., 0 OP qhs 1/2 inch Prescribed by: KELSI MAKI on 10/04/19 09 Hydrocodone Bit/Acetaminophen 1 Each Tablet, 1 TAB PO Q4H PRN for PAIN-MILD TO MODERATE Prescribed by: ROSIBEL DESHPANDE on 09/30/16 112 Multivitamin with Minerals 1 Each Tablet, 1 EACH PO DAILY, (Reported) Polyethylene Glycol 3350 255 Gm Powder, 17 GM PO DAILY, (Reported) Prednisone 20 Mg Tab, 80 MG PO DAILY Prescribed by: KELSI MAKI on 10/04/19924 Saw [place] Fruit 450 Mg Capsule, 1,800 MG PO DAILY, (Reported) take 4 (450mg) tabs Valacyclovir HCl 1,000 Mg Tablet, 1,000 MG PO BID Prescribed by: KELSI MAKI on 10/04/19924 Zinc Amino Acid Chelate 50 Mg Tablet, 50 MG PO DAILY, (Reported) Past Medical/Social/Family Hx Patient Social History Tobacco Use?: Yes Smoking Status: Never a Smoker Smokeless Tobacco Frequency: Never a User Use of E-Cig and/or Vaping dev: No E-Cig and/or Vaping Freq: Never a User Substance use?: No Alcohol Use?: No Pt stated abuse/neglect: No Immunizations Up To Date Influenza Vaccine Up-to-Date: No; Not Current Tetanus Booster (TDap): More Than 5 Years Current Status Advance Directives: No Communicates: Verbally Primary Language: Vietnamese Preferred Spoken Language: Vietnamese Is interpretation needed?: No Implanted or Applied Medical D: None Review of Systems Constitutional: see HPI Focused Exam Lactate Level 03/06/21 12:04: Lactic Acid Level 5.84*H 03/06/21 14:25: Lactic Acid Level 3.36*H Height, Weight, BMI Height: 6'3.00" Weight: 340lbs. 0.0oz. 154.238793bt; 28.10 BMI Method: Time of Focused Exam: 11:20 Lactic Acid Level Laboratory Tests Test 03/06/21 14:25 Lactic Acid Level 3.36 MMOL/L (0.50-2.00) *H Exam Exam Patient acknowledged, consented, and participated in this virtual visit which was conducted using real time audio/video Vital Signs Date Time Temp Pulse Resp B/P (MAP) Pulse Ox O2 Delivery O2 Flow Rate FiO2 03/06/21 16:27 37.1 105 27 121/44 92 OxyMask 8.00 03/06/21 14:52 107 17 121/70 94 Room Air 03/06/21 11:39 Non Rebreather 15.00 03/06/21 11:39 36.1 112 19 107/82 (90) Non Rebreather 15.00 03/06/21 11:10 95 Non Rebreather 15.00 Height & Weight Height: 6'3.00" Weight: 340lbs. 0.0oz. 154.441585tp; 28.10 BMI Method: General Appearance: Moderate Distress, Other (Disheveled, agitated, tachypneic and confused. Covered in feces) HEENT: PERRL/EOMI, Other (Dry mucous membranes) Neck: Supple, Other (Surgical scar right neck) Respiratory: Decreased Breath Sounds, Rhonci Cardiovascular: Tachycardia Capillary Refill: Less Than 3 Seconds Neurologic/Psychiatric: Alert, Other (Disoriented to place and time) Skin: Other (Excoriations to thighs, ulcer to scrotum and diabetic pressure ulcer to right great toe pad) Results Lab Laboratory Tests 03/06/21 11:15 03/06/21 12:03 Assessment/Plan Assessment/Plan (Tele-ICU Physician , consultation) Available chart/ vitals / labs / Images reviewed H&P is from ER notes Patient's information available about PMH, Shx, Fhx allergy reviewed in EMR. ROS as per chart and RN report Now in ICU, hemodynamically stable , tachycardic 100 Video assessment done using teleICU camera, rest of exam as per RN Discussed with RN. Consultants: Hospital course: 03/06 - EMS to ER ( found confused, disheveled, covered in feces and urine at a local hotel) - septic , COVID+, PNA , IRASEMA A/P Sepsis - cotn IVF , 2 L received , 2 L NS to be given now PNA bilat and slin infectin - cont abx - Zosyn IRASEMA ( CPK is borderline elevated - cont hydration - patel is in , migh need US if no improvement hypernatremia - dehydration Elevated lactic - follow Encephalopathy - CTH wnl Covid + - hypoxia - 8 L , symptoms /vaccination status unknown -start dexa Iv - check ddimer - might need higher dose AC positive for methamphetamines ( history of polysubstance abuse as per ER note - prn benzo Lines : periph (Central Line Necessity Reviewed) Patel: + OG: Nutrition: Analgesia: Anxiety/ delirium VTE Prophylaxis: hep sq Stress Ulcer Prophylaxis: Glycemic Control: Plans in collaboration with bedside consultants and IM MDs. Discussed with RN to reach out if any questions or concerns A total of 33minutes of critical care time was devoted to this patient today, required to treat and/or prevent further deterioration of critical care con dition ( as above ) . MECHELLE WASHINGTON MD Mar 06, 2021 17:45
[2021-03-06 18:01] LABS: POTASSIUM 5.4 MMOL/L (3.6-5.0)
[2021-03-06 18:07] LABS: CREATININE SERUM 3.39 MG/DL (0.60-1.30)
[2021-03-06] MEDS: PIPERACILLIN SODIUM/TAZOBACTAM 4.5 GM in NS (IVPB) 100 ML IV SCH (18:09)
[2021-03-06] MEDS: D5 1/2 NS 1000 ML IV SOLUTION 1,000 ML IV SCH (18:09)
[2021-03-06 18:27] VITALS: BP 148/86
[2021-03-06 18:42] LABS: ABG BASE EXCESS -4.3 MMOL/L (-2.5-2.5); ABG OXYGEN SATURATION 96 % (94-100); ABG PCO2 63 MMHG (35-45); ABG PO2 106 MMHG (79-93); ABG TCO2 24.7 MMOL/L (21.0-31.0)
[2021-03-06 18:48] LABS: ABG PH 7.19 (7.37-7.43)
[2021-03-06 18:49] LABS: ALLENS TEST POS; INSPIRED O2 8L; PATIENT TEMP 98.4; VENTILATOR NO
[2021-03-06 19:05] VITALS: BP 129/73
[2021-03-06] MEDS: DOCUSATE SODIUM 100 MG (COLACE) CAP PO SCH (20:32)
[2021-03-06] MEDS: MICONAZOLE 2% POWDER (DESENEX AF) 90 GM TOP SCH (20:45)
[2021-03-06] MEDS: COLLAGENASE 30 GM (SANTYL) TUBE TP SCH (20:46)
[2021-03-06] MEDS ORDERED: inSUlin ASPART (NovoLOG) 1 UNIT/0.01 ML (CHARGE PER UNIT) SC SCH ×2 (21:00)
[2021-03-06 21:14] LABS: ABG BASE EXCESS -4.3 MMOL/L (-2.5-2.5); ABG OXYGEN SATURATION 96 % (94-100); ABG PO2 108 MMHG (79-93); ABG TCO2 26.4 MMOL/L (21.0-31.0)
[2021-03-06 21:16] LABS: ALLENS TEST YES-POS; INSPIRED O2 75% BIPAP; PATIENT TEMP 36.5; VENTILATOR NO
[2021-03-06 21:17] LABS: ABG PCO2 76 MMHG (35-45); ABG PH 7.12 (7.37-7.43)
[2021-03-06] MEDS ORDERED: PROPOFOL DRIP (ICU) 100 ML IV ONE (21:37)
[2021-03-06] MEDS ORDERED: NOREPINEPHRINE 8 MG/250 ML 250 ML IV ONE (21:49)
[2021-03-06] MEDS: RT-ALBUTEROL HFA 8.5 GM INHALER IH SCH (21:49)
[2021-03-06] MEDS ORDERED: 1/2 NS IV SOLUTION 1,000 ML IV ONE (21:52)
[2021-03-06] MEDS ORDERED: D5 1/2 NS 1000 ML IV SOLUTION 1,000 ML IV SCH (22:00)
--- NOTE | 2021-03-06 22:15 | Procedure/Intervention Note ---
Procedures/Interventions Date of ETT Placement: Mar 06, 2021 Time of ETT Placement: 2143 Intubation Method: orotracheal Tube Size: 7.50 Medications: Etomidate, Rocuronium Positive End Tide CO2: Yes Breath Sounds after Intubation: bilateral-equal Intubation Complications: no complications Post Intubation Xray: Yes Called ICU by laundry housekeeper to intubate due to respiratory failure secondary to COVID-19. He was given 20 mg of etomidate for sedation and 50 mg of rocuronium for paralytic. He was bagged during this with oxygen saturation consistently of about 80%. We then quickly intubated with a size 7.5 endotracheal tube slid between the cords and balloon inflated. When attached to the ventilator with Peep his oxygen saturation kofi to 95%. However he did become hypotensive. eICU aware and ordered IV fluid bolus. LANNY MARINO APRN Mar 06, 2021 22:15
--- NOTE | 2021-03-06 22:53 | Diagnostic Imaging Report ---
INDICATION: Respiratory distress. FINDINGS: ET tube mid thoracic trachea. Five lobe infiltrates present having progressed in the lower lungs, greater left, when compared to earlier this same date. OG catheter goes to the diaphragm and beyond that level was not visualized on a technical basis. IMPRESSION: Worsened infiltrates. ET tube in good position. No pneumothorax. Dictated by: Dictated on workstation # [id number]
[2021-03-06] MEDS: DexMEDEtomidine 250 ML DRIP 250 ML IV SCH (23:19)
[2021-03-06 23:33] LABS: ABG BASE EXCESS -5.5 MMOL/L (-2.5-2.5); ABG OXYGEN SATURATION 94 % (94-100); ABG PCO2 55 MMHG (35-45); ABG PO2 83 MMHG (79-93)
[2021-03-06 23:35] LABS: ABG PH 7.21 (7.37-7.43); ALLENS TEST YES-POS
[2021-03-06 23:36] LABS: INSPIRED O2 50%; PATIENT TEMP 36.5; VENTILATOR YES
[2021-03-06] MEDS: NOREPINEPHRINE 8 MG/250 ML 250 ML IV SCH (23:49)
[2021-03-07] MEDS: inSUlin ASPART (NovoLOG) 1 UNIT/0.01 ML (CHARGE PER UNIT) SC SCH ×4 (00:55→18:09)
[2021-03-07] MEDS: RT-ALBUTEROL HFA 8.5 GM INHALER IH SCH ×5 (02:33→18:08)
[2021-03-07] MEDS ORDERED: fentaNYL DRIP PRE-MIX 250 ML IV ONE (02:44)
[2021-03-07] MEDS: fentaNYL DRIP PRE-MIX 250 ML IV SCH ×3 (02:51→15:16)
[2021-03-07] MEDS: PIPERACILLIN SODIUM/TAZOBACTAM 4.5 GM in NS (IVPB) 100 ML IV SCH ×2 (02:55→10:35)
[2021-03-07] MEDS: D5 1/2 NS 1000 ML IV SOLUTION 1,000 ML IV SCH (02:55)
[2021-03-07] MEDS ORDERED: PHENYLEPHRINE INJ 10 MG/ML (FOR DRIP KITS ONLY) ONE (03:59)
[2021-03-07] MEDS ORDERED: VASOPRESSIN INJECTION 20 UNIT/ML VIAL ONE (03:59)
[2021-03-07] MEDS ORDERED: NS (IVPB) 100 ML ONE (04:00)
[2021-03-07] MEDS ORDERED: NORMAL SALINE 250 ML ONE (04:00)
--- NOTE | 2021-03-07 04:16 | Anesthesia-Procedure Note ---
Procedures/Interventions Procedure Start/Stop/Diagnosis Date of Procedure: Mar 07, 2021 Start Time: 03:30 Stop Time: 04:00 Arterial Line Arterial Line Catheter: 20G Type: Radial Location: Right Procedure: prepped, draped in sterile fashion, good wave-form was obtained, patient tolerated procedure well, no immediate complications, post procedure area cleaned, post procedure dressing applied THEODORA TIERNEY CRNA Mar 07, 2021 04:16
[2021-03-07 04:26] LABS: ABG BASE EXCESS -6.2 MMOL/L (-2.5-2.5); ABG OXYGEN SATURATION 94 % (94-100); ABG PCO2 50 MMHG (35-45); ABG PO2 74 MMHG (79-93); ABG TCO2 21.8 MMOL/L (21.0-31.0)
[2021-03-07 04:28] LABS: ABG PH 7.23 (7.37-7.43); ALLENS TEST ARTLINE; BASOPHILS % (AUTO) 0 % (0-10); EOSINOPHILS % (AUTO) 0 % (0-10); HEMATOCRIT 48 % (40-54); HEMOGLOBIN 13.6 g/dL (13.3-17.7); INSPIRED O2 100%; LYMPHOCYTES # (AUTO) 0.9 10^3/uL (1.0-4.0); LYMPHOCYTES % (AUTO) 6 % (12-44); MEAN CORPUSCULAR HEMOGLOBIN 30 pg (25-34); MEAN CORPUSCULAR HGB CONC 29 g/dL (32-36); MEAN CORPUSCULAR VOLUME 103 fL (80-99); MEAN PLATELET VOLUME 12.4 fL (9.0-12.2); MONOCYTES # (AUTO) 0.7 10^3/uL (0.0-1.0); MONOCYTES % (AUTO) 4 % (0-12); NEUTROPHILS # (AUTO) 15.1 10^3/uL (1.8-7.8); NEUTROPHILS % (AUTO) 89 % (42-75); PLATELET COUNT 366 10^3/uL (130-400); VENTILATOR YES; WHITE BLOOD COUNT 16.9 10^3/uL (4.3-11.0)
[2021-03-07 04:29] LABS: PATIENT TEMP 36.5
[2021-03-07 04:34] LABS: ALBUMIN 2.4 GM/DL (3.2-4.5); POTASSIUM 5.5 MMOL/L (3.6-5.0)
[2021-03-07 04:36] LABS: CALCIUM 7.5 MG/DL (8.5-10.1)
[2021-03-07 04:37] LABS: TOTAL PROTEIN 6.9 GM/DL (6.4-8.2)
[2021-03-07 04:39] LABS: BILIRUBIN,TOTAL 0.8 MG/DL (0.1-1.0)
[2021-03-07 04:41] LABS: CREATININE SERUM 3.29 MG/DL (0.60-1.30)
--- NOTE | 2021-03-07 05:29 | Tele-ICU Progress Note ---
Subjective Date Seen by a Provider: Mar 07, 2021 Time Seen by a Provider: 05:26 Subjective/Events-last exam called by bed side rn pt became hypoxemic/ bradycardic Sepsis Event Evaluation Height, Weight, BMI Height: 6'3.00" Weight: 340lbs. 0.0oz. 154.947850sp; 28.10 BMI Method: Focused Exam Lactate Level 03/06/21 12:04: Lactic Acid Level 5.84*H 03/06/21 14:25: Lactic Acid Level 3.36*H 03/06/21 17:35: Lactic Acid Level 1.81 Time of Focused Exam: 11:20 Exam Exam Patient acknowledged, consented, and participated in this virtual visit which was conducted using real time audio/video Vital Signs Date Time Temp Pulse Resp B/P (MAP) Pulse Ox O2 Delivery O2 Flow Rate FiO2 03/07/21 02:36 92 27 95 100 03/07/21 01:00 88 03/07/21 00:00 94 Mechanical Ventilator 100 03/06/21 23:19 87 110/73 03/06/21 23:00 90 111/76 95 OxyMask 8.00 03/06/21 22:00 93 14 130/74 95 OxyMask 8.00 03/06/21 21:00 96 21 123/82 93 OxyMask 8.00 03/06/21 20:49 92 16 92 100 03/06/21 20:23 36.6 03/06/21 20:00 92 NIV Bilevel 75 03/06/21 20:00 98 20 128/83 93 OxyMask 8.00 03/06/21 19:05 94 19 92 50.00 03/06/21 19:00 100 03/06/21 19:00 98 19 129/73 92 OxyMask 8.00 03/06/21 18:45 98 19 156/87 92 OxyMask 8.00 03/06/21 18:30 96 29 148/86 93 OxyMask 8.00 03/06/21 18:27 101 93 03/06/21 18:15 103 13 89/67 93 OxyMask 8.00 03/06/21 18:00 99 21 132/88 97 OxyMask 8.00 03/06/21 17:45 101 19 150/61 95 OxyMask 8.00 03/06/21 17:30 101 25 78/61 97 OxyMask 8.00 03/06/21 17:15 100 32 104/84 95 OxyMask 8.00 03/06/21 17:00 99 34 101/47 95 OxyMask 8.00 03/06/21 16:45 97 17 130/76 95 OxyMask 8.00 03/06/21 16:34 101 03/06/21 16:30 103 21 118/39 95 OxyMask 8.00 03/06/21 16:27 37.1 105 27 121/44 92 OxyMask 8.00 03/06/21 15:45 OxyMask 8.00 03/06/21 14:52 107 17 121/70 94 Room Air 03/06/21 11:39 Non Rebreather 15.00 03/06/21 11:39 36.1 112 19 107/82 (90) Non Rebreather 15.00 03/06/21 11:10 95 Non Rebreather 15.00 I & O 03/07/21 07:00 Intake Total 2100 ml Output Total 350 ml Balance 1750 ml Height & Weight Height: 6'3.00" Weight: 340lbs. 0.0oz. 154.532172st; 28.10 BMI Method: General Appearance: Moderate Distress, Other (Disheveled, agitated, tachypneic and confused. Covered in feces) HEENT: PERRL/EOMI, Other (Dry mucous membranes) Neck: Supple, Other (Surgical scar right neck) Respiratory: Decreased Breath Sounds, Rhonci Cardiovascular: Tachycardia Capillary Refill: Less Than 3 Seconds Neurologic/Psychiatric: Alert, Other (Disoriented to place and time) Skin: Other (Excoriations to thighs, ulcer to scrotum and diabetic pressure ulcer to right great toe pad) Results Lab Laboratory Tests 03/06/21 11:15 03/06/21 12:03 03/06/21 17:35 03/07/21 03:15 Assessment/Plan Assessment/Plan Acute hypoxemic resp failure -abg/cxrya -peep 18 rr 24 tv 500 Hemodynamic instability possible in the context of metabolic acidosis/ hyperk triggering arrhythmias -bicarb push improved rhythm and bp -start bicarb drip -basic labs ordered Shock -on levophed / dopmine ordered but held in the context of restored hemodynamics. FELISA CHILDRESS MD Mar 07, 2021 05:29
[2021-03-07] MEDS ORDERED: SODIUM BICARB 8.4% 50 MEQ/50 ML (ABBOTT) SYR IV ONE ×2 (05:30→08:30)
[2021-03-07] MEDS ORDERED: CALCIUM GLUC. 10% 4.65 MEQ/10 ML VIAL IV ONE (05:30)
[2021-03-07 05:37] LABS: ABG BASE EXCESS -5.7 MMOL/L (-2.5-2.5); ABG OXYGEN SATURATION 99 % (94-100); ABG PCO2 57 MMHG (35-45); ABG PO2 142 MMHG (79-93); ABG TCO2 23.1 MMOL/L (21.0-31.0)
[2021-03-07 05:38] LABS: ABG PH 7.19 (7.37-7.43); ALLENS TEST YES-POS; INSPIRED O2 50%; PATIENT TEMP 36.5; VENTILATOR YES
--- NOTE | 2021-03-07 05:38 | History & Physical-Hospitalist ---
History of Present Illness HPI/Chief Complaint CC: Multi system organ failure due to meth use HPI: 66 yr old WM who was extracted from a hotel room where he was staying for the past several days after injecting and smoking meth for many days. He presented to [facility] with acute kidney injury and altered mental status. Pt progressed and ultimately required intubation. He is now on a ventilator with vent settings at 500/24/14 at 100%. He does require Dopamine and Levophed for severe hypotension. Zosyn maintained but pt is multi system organ failure and due to this fact he will likely go into cardiac arrest. Prognosis is extremely grave. Source: RN/MD, intermediate records Exam Limitations: clinical condition Date Seen 03/07/21 Time Seen by a Provider: 10:30 Attending Physician Domenica Ocasio DO PCP Lucio,Kj QURESHI Referring Physician Date of Admission Mar 06, 2021 at 15:45 Home Medications & Allergies Home Medications Reviewed patient Home Medication Reconciliation performed by pharmacy medication reconciliations medical technician assistant and/or nursing. Patients Allergies have been reviewed. Allergies Allergies Coded Allergies No Known Drug Allergies (Unverified09/23/16) Past Stiitfc-Hoqued-Uhfwhm Hx Patient Social History Marrital Status: single Employed/Student: unemployed Tobacco Use?: Yes Smoking Status: Never a Smoker Smokeless Tobacco Frequency: Never a User Use of E-Cig and/or Vaping dev: No Use of E-Cig and/or Vaping Bradley: Never a User Substance use?: No Alcohol Use?: No Pt feels they are or have been: No Immunizations Up To Date Tetanus Booster (TDap): More Than 5 Years Seasonal Allergies Seasonal Allergies: Yes (at times) Current Status Advance Directives: No Communicates: Verbally Primary Language: Kinyarwanda Preferred Spoken Language: Kinyarwanda Is interpretation needed?: No Implanted or Applied Medical D: None Past Medical History Chronic Constipation, Gall Bladder Disease Loss of Vision: Denies Hearing Impairment: Denies Depression Blood Disorders: No Family Medical History Alcoholism 19 FATHER FH: bipolar disorder G8 BROTHER FH: mental illness 19 MOTHER FH: suicide 19 FATHER Review of Systems ROS-Unable to Obtain: intubation Constitutional: see HPI Physical Exam Physical Exam Vital Signs Vital Signs - First Documented 03/06/21 03/06/21 11:10 20:00 Pulse Ox 95 O2 Delivery Non Rebreather O2 Flow Rate 15.00 FiO2 75 Capillary Refill : Less Than 3 Seconds Height, Weight, BMI Height: 6'3.00" Weight: 340lbs. 0.0oz. 154.448963nb; 28.10 BMI Method: General Appearance: Chronically ill, Other (sedated and intubated) Respiratory: Decreased Breath Sounds Cardiovascular: Regular Rate, Rhythm Results Results/Procedures Labs Laboratory Tests 03/06/21 11:15 03/06/21 12:03 03/06/21 17:35 03/07/21 03:15 03/07/21 05:27 03/07/21 12:11 Patient resulted labs reviewed. Assessment/Plan Admission Diagnosis Assessment: Multi-system organ failure Vent dependent IRASEMA Shock Meth use Plan: ICU care Cardiac arrest inevitable Admission Status: Inpatient Order (span 2 midnights) Reason for Inpatient Admission: resp failure Diagnosis/Problems Diagnosis/Problems (1) Sepsis Status: Acute (2) Encephalopathy acute Status: Acute (3) Methamphetamine intoxication Status: Acute (4) Pneumonia Status: Acute (5) Hypernatremia Status: Acute (6) Acute kidney injury Status: Acute DOMENICA OCASIO DO Mar 07, 2021 05:38
[2021-03-07] MEDS ORDERED: SODIUM BICARB 8.4% 50 MEQ/50 ML (ABBOTT) SYR ONE (05:41)
[2021-03-07] MEDS ORDERED: D5W 1000 ML IV SOLUTION 1,000 ML ONE (05:42)
[2021-03-07 05:48] LABS: POTASSIUM 5.8 MMOL/L (3.6-5.0)
[2021-03-07 05:49] LABS: CALCIUM 7.4 MG/DL (8.5-10.1)
[2021-03-07 05:54] LABS: CREATININE SERUM 3.3 MG/DL (0.60-1.30)
[2021-03-07] MEDS: DOPamine DRIP 250 ML IV SCH ×4 (06:16→15:17)
[2021-03-07] MEDS: SODIUM BICARBONATE 8.4% SYR 150 MEQ in D5W 1000 ML IV SOLUTION 1,000 ML IV SCH ×2 (06:46→17:34)
[2021-03-07] MEDS: NOREPINEPHRINE 8 MG/250 ML 250 ML IV SCH ×3 (06:47→15:17)
--- NOTE | 2021-03-07 07:01 | Diagnostic Imaging Report ---
Portable erect AP chest at 12:57. Indication: Central line placement In the interval since the exam performed on 03/06/2021 at 10:12 PM, a central venous catheter has been inserted through the internal jugular vein on the left. The tip of the catheter overlies the junction of the innominate vein and the superior vena cava. There is no sign of a pneumothorax on the left. The other supportive tubes and lines seen previously are again evident and no different. There continues to be involvement of both lungs by pneumonia/atelectasis particularly the right upper lobe and left lung base. These findings are similar to the prior exam. The heart is stable. Impression: 1. There has been interval insertion of central venous catheter on the left without apparent complication. Specifically, there is no sign of a pneumothorax. 2. The overall appearance of the chest itself has not changed significantly. Dictated by: Dictated on workstation # [id number]
[2021-03-07] MEDS: MICONAZOLE 2% POWDER (DESENEX AF) 90 GM TOP SCH (07:59)
[2021-03-07] MEDS: DOCUSATE SODIUM 100 MG (COLACE) CAP PO SCH (07:59)
[2021-03-07] MEDS: COLLAGENASE 30 GM (SANTYL) TUBE TP SCH (07:59)
[2021-03-07 08:30] LABS: ABG BASE EXCESS -0.6 MMOL/L (-2.5-2.5); ABG OXYGEN SATURATION 85 % (94-100); ABG PCO2 58 MMHG (35-45); ABG PO2 54 MMHG (79-93); ABG TCO2 27.3 MMOL/L (21.0-31.0)
[2021-03-07] MEDS ORDERED: SOD POLYSTERENE 15 GM/60 ML (KAYEXALATE) UNIT DOSE PO ONE (08:30)
[2021-03-07] MEDS ORDERED: CALCIUM CHLORIDE 1 GM/10 ML (IMS) SYR IV ONE (08:30)
[2021-03-07 08:34] LABS: ABG PH 7.27 (7.37-7.43); ALLENS TEST ART LINE; INSPIRED O2 100%; VENTILATOR YES
[2021-03-07] MEDS ORDERED: EPINEPHrine 0.1 MG/ML 10 ML (HOSPIRA) SYR IJ ONE (08:48)
[2021-03-07] MEDS ORDERED: DOPamine DRIP 400,000 MCG/250 ML BAG IV ONE (08:48)
[2021-03-07] MEDS ORDERED: ATROPINE INJECTION 1 MG/10 ML SYR (ABBOTT) INJ ONE (08:48)
[2021-03-07] MEDS ORDERED: CALCIUM CHLORIDE 10% 1000 MG/10 ML VIAL IV ONE (08:48)
[2021-03-07] MEDS ORDERED: SODIUM BICARB 8.4% 50 MEQ/50 ML (ABBOTT) SYR INJ ONE (08:48)
[2021-03-07] MEDS ORDERED: inSUlin (REGULAR) HUMAN 1 UNIT/0.01 ML (CHARGE PER UNIT) IV NR (09:30)
[2021-03-07] MEDS ORDERED: DEXTROSE 50% 50 ML (IMS) SYR IV NR (09:45)
--- NOTE | 2021-03-07 10:19 | Tele-ICU Progress Note ---
Subjective Date Seen by a Provider: Mar 07, 2021 Time Seen by a Provider: 10:19 Sepsis Event Evaluation Height, Weight, BMI Height: 6'3.00" Weight: 340lbs. 0.0oz. 154.880751er; 28.10 BMI Method: Focused Exam Lactate Level 03/06/21 12:04: Lactic Acid Level 5.84*H 03/06/21 14:25: Lactic Acid Level 3.36*H 03/06/21 17:35: Lactic Acid Level 1.81 Time of Focused Exam: 11:20 Exam Exam Patient acknowledged, consented, and participated in this virtual visit which was conducted using real time audio/video Vital Signs Date Time Temp Pulse Resp B/P (MAP) Pulse Ox O2 Delivery O2 Flow Rate FiO2 03/07/21 10:00 107 19 91 Mechanical Ventilator 100.00 03/07/21 09:16 97 119/47 03/07/21 09:16 101 155/64 03/07/21 09:00 105 20 93 Mechanical Ventilator 100.00 03/07/21 08:00 112 22 86 Mechanical Ventilator 100.00 Automatic Cuff 03/07/21 07:10 112 26 90 100 03/07/21 07:00 108 22 81/62 90 Mechanical Ventilator 100.00 03/07/21 07:00 110 03/07/21 06:47 107 122/48 03/07/21 06:16 105 131/48 03/07/21 06:00 97 27 109/68 94 OxyMask 8.00 03/07/21 05:00 60 23 98/72 91 OxyMask 8.00 03/07/21 04:00 84 Mechanical Ventilator 100 03/07/21 04:00 65 107/56 92 OxyMask 8.00 03/07/21 03:00 77 100/83 96 OxyMask 8.00 03/07/21 02:36 92 27 95 100 03/07/21 02:00 85 100/79 96 OxyMask 8.00 03/07/21 01:00 88 03/07/21 01:00 85 101/65 97 OxyMask 8.00 03/07/21 00:00 94 Mechanical Ventilator 100 03/07/21 00:00 87 117/79 96 OxyMask 8.00 03/06/21 23:19 87 110/73 03/06/21 23:00 90 111/76 95 OxyMask 8.00 03/06/21 22:00 93 14 130/74 95 OxyMask 8.00 03/06/21 21:00 96 21 123/82 93 OxyMask 8.00 03/06/21 20:49 92 16 92 100 03/06/21 20:23 36.6 03/06/21 20:00 92 NIV Bilevel 75 03/06/21 20:00 98 20 128/83 93 OxyMask 8.00 03/06/21 19:05 94 19 92 50.00 03/06/21 19:00 100 03/06/21 19:00 98 19 129/73 92 OxyMask 8.00 03/06/21 18:45 98 19 156/87 92 OxyMask 8.00 03/06/21 18:30 96 29 148/86 93 OxyMask 8.00 03/06/21 18:27 101 93 03/06/21 18:15 103 13 89/67 93 OxyMask 8.00 03/06/21 18:00 99 21 132/88 97 OxyMask 8.00 03/06/21 17:45 101 19 150/61 95 OxyMask 8.00 03/06/21 17:30 101 25 78/61 97 OxyMask 8.00 03/06/21 17:15 100 32 104/84 95 OxyMask 8.00 03/06/21 17:00 99 34 101/47 95 OxyMask 8.00 03/06/21 16:45 97 17 130/76 95 OxyMask 8.00 03/06/21 16:34 101 03/06/21 16:30 103 21 118/39 95 OxyMask 8.00 03/06/21 16:27 37.1 105 27 121/44 92 OxyMask 8.00 03/06/21 15:45 OxyMask 8.00 03/06/21 14:52 107 17 121/70 94 Room Air 03/06/21 11:39 Non Rebreather 15.00 03/06/21 11:39 36.1 112 19 107/82 (90) Non Rebreather 15.00 03/06/21 11:10 95 Non Rebreather 15.00 I & O 03/07/21 07:00 Intake Total 3450 ml Output Total 775 ml Balance 2675 ml Height & Weight Height: 6'3.00" Weight: 340lbs. 0.0oz. 154.848581aw; 28.10 BMI Method: General Appearance: Moderate Distress, Other (Disheveled, agitated, tachypneic and confused. Covered in feces) HEENT: PERRL/EOMI, Other (Dry mucous membranes) Neck: Supple, Other (Surgical scar right neck) Respiratory: Decreased Breath Sounds, Rhonci Cardiovascular: Tachycardia Capillary Refill: Less Than 3 Seconds Neurologic/Psychiatric: Alert, Other (Disoriented to place and time) Skin: Other (Excoriations to thighs, ulcer to scrotum and diabetic pressure ulcer to right great toe pad) Results Lab Laboratory Tests 03/06/21 11:15 03/06/21 12:03 03/06/21 17:35 03/07/21 03:15 03/07/21 05:27 Assessment/Plan Assessment/Plan Available chart/ vitals / labs / Images reviewed Video assessment done using teleICU camera, rest of exam as per RN Discussed with RN , EXAM PER RN Events overnight : hypoxemic/ bradycardic- intubated Afebrile FiO2 - I/O = pos 1700 Drips: bicarb DOPA 20 , levo 0.03 Sedation gtt: prsdx 0.7 fent 150 ( RASS ) VENT SETTINGS and ABG reviewed Not candidate for SBT today REVIEWED Cardiovascular Stability / Sedation Score / FI02/PEEP / ABG / CXR Consultants: Hospital course: 03/06 - EMS to ER ( found confused, disheveled, covered in feces and urine at a local hotel) - septic , COVID+, PNA , IRASEMA 03/07 - INTUBATED A/P Acute resp failure - intubated 03/07 - AC 24-( sp 26 ) 500 ( 6 cc /kg ) +14 100% PAP 25 - resp acidosis - increase TV to 7 cc/kg - 580 - follow Shock , suspect sepsis - cont DOPA 20 , levo 0.03 - check ECHO - ? EF and RVSP - if high will start on full dose of AC PNA bilat and possible skin infectin - cont abx - Zosyn IRASEMA ( CPK is borderline elevated - cont hydration - cont bicarb gtt Hyperkalemia - with IRASEMA - cont to monitor and Tx hypernatremia - dehydration - improving Elevated lactic - follow Encephalopathy - CTH wnl Covid + ( symptoms/ duration /vaccination status unknown -DExa iv 03/06 - ddimer 03/06 - 2.5 - will repeat ddimer - might need higher dose AC positive for methamphetamines ( history of polysubstance abuse as per ER note - prn benzo Hyperglycemia - ISS Drop in HB - delutional ? - - follow Lines :LEFT IJ 03/07 (Central Line Necessity Reviewed) Hugo: + OG: + Nutrition: to start TF Analgesia: Anxiety/ delirium VTE Prophylaxis: hep sq Stress Ulcer Prophylaxis: Glycemic Control: Plans in collaboration with bedside consultants and IM MDs. Discussed with RN to reach out if any questions or concerns A total of 33minutes of critical care time was devoted to this patient today, required to treat and/or prevent further deterioration of critical care condit ion ( as above ) . MECHELLE WASHINGTON MD Mar 07, 2021 10:19
[2021-03-07 10:55] VITALS: BP 147/58
[2021-03-07] MEDS: DexMEDEtomidine 250 ML DRIP 250 ML IV SCH (11:24)
--- NOTE | 2021-03-07 11:58 | Consultation - Surgery ---
History of Present Illness History of Present Illness Patient Consulted On(wolfgang/time) 03/07/21 11:52 Time Seen by Provider: 09:02 History of Present Illness Surgery asked to consult regarding Ulcerations on scrotum. HPI per ED: Patient is a 66-year-old male with history of polysubstance abuse who is found confused, disheveled, covered in feces and urine at a local hotel. EMS and police were called to assist with the eviction of patient. Patient tachycardic, confused with labored breathing on EMS arrival. Patient noted to have excoriations to his thighs, diabetic foot sore and ulcer to scrotum. Patient is initially tachycardic in 120s and hypertensive tachypneic with i nability to initially to obtain accurate oxygen saturation. When I saw pt he was sedated and intubated, requiring 2 Vasopressors to keep O2 saturation up. Allergies and Home Medications Allergies Coded Allergies: No Known Drug Allergies (Unverified , 09/23/16) Patient Home Medication List Home Medication List Reviewed: Yes Ascorbate Calcium (Vitamin C) 500 Mg Tablet, 500 MG PO DAILY, (Reported) Entered as Reported by: TERESA TY on 09/23/16851 Cephalexin (Keflex) 500 Mg Capsule, 500 MG PO BID Prescribed by: ROSIBEL DESHPANDE on 09/30/16 112 Erythromycin Base (Erythromycin Opthalmic Ointment) 1 Gm Oint...g., 0 OP qhs Prescribed by: KELSI MAKI on 10/04/19 09 Hydrocodone Bit/Acetaminophen (HYDROcodone/APAP 10/325 TABLET) 1 Each Tablet, 1 TAB PO Q4H PRN for PAIN-MILD TO MODERATE Prescribed by: ROSIBEL DESHPANDE on 09/30/16 1123 Multivitamin with Minerals (Multivitamins with Minerals) 1 Each Tablet, 1 EACH PO DAILY, (Reported) Entered as Reported by: TERESA TY on 09/23/16851 Polyethylene Glycol 3350 (Polyethylene Glycol 3350) 255 Gm Powder, 17 GM PO DAILY, (Reported) Entered as Reported by: TERESA TY on 09/23/16851 Prednisone (Prednisone) 20 Mg Tab, 80 MG PO DAILY Prescribed by: KELSI MAKI on 10/04/19 0925 Saw Lyons Fruit (Saw Lyons) 450 Mg Capsule, 1,800 MG PO DAILY, (Reported) Entered as Reported by: TERESA TY on 09/23/16 0852 Valacyclovir HCl (Valtrex) 1,000 Mg Tablet, 1,000 MG PO BID Prescribed by: KELSI MAKI on 10/04/19 0925 Zinc Amino Acid Chelate (Zinc) 50 Mg Tablet, 50 MG PO DAILY, (Reported) Entered as Reported by: TERESA TY on 09/23/16 0852 Past Qqqouup-Gehynn-Sofmgy Hx Patient Social History Smoking Status: Never a Smoker Former Smoker, Quit: Sep 23, 2001 2nd Hand Smoke Exposure: No Recent Hopitalizations: No Alcohol Use?: No Have you traveled recently?: No Seasonal Allergies Seasonal Allergies: Yes (at times) Surgeries History of Surgeries: Yes (umb hernia) Respiratory History of Respiratory Disorde: No Cardiovascular History of Cardiac Disorders: Yes (occasional edema) Neurological History of Neurological Disord: No Genitourinary History of Genitourinary Disor: Yes (overactive bladder) Gastrointestinal History of Gastrointestinal Di: Yes (umbillical hernia, fatty liver) Gastrointestinal Disorders: Chronic Constipation, Gall Bladder Disease Musculoskeletal History of Musculoskeletal Dis: Yes (pinched nerve in back, causes pain) Endocrine History of Endocrine Disorders: No HEENT History of HEENT Disorders: No Loss of Vision: Denies Hearing Impairment: Denies Cancer History of Cancer: No Psychosocial Behavioral Health Disorders: Depression Integumentary History of Skin or Integumenta: No Blood Transfusions History of Blood Disorders: No Family Medical History Significant Family History: Psychiatric Problems Family Medial History: Alcoholism 19 FATHER FH: bipolar disorder G8 BROTHER FH: mental illness 19 MOTHER FH: suicide 19 FATHER Review of Systems-General ROS-Unable to Obtain: pt sedated and intubated Physical Exam-General Problems Physical Exam Vital Signs Vital Signs - First Documented 03/06/21 03/06/21 11:10 20:00 Pulse Ox 95 O2 Delivery Non Rebreather O2 Flow Rate 15.00 FiO2 75 Capillary Refill : Less Than 3 Seconds General Appearance: other (sedated and intubated) HEENT: other (ET tube in place) Respiratory: respiratory distress, decreased breath sounds, accessory muscle use, crackles Cardiovascular: no murmur, tachycardia Gastrointestinal: soft, no organomegaly Genital/Rectal: other (penis is slightly retracted with patel in place, scrotum has multiple areas of ulceration and one necrotic eschar) Neurologic/Psychiatric: other (sedated and intubated) Data Review Labs Laboratory Tests 03/06/21 12:03: Sodium Level 162*H, Potassium Level 5.2H, Chloride Level 118H, Carbon Dioxide Level 21, Anion Gap 23H, Blood Urea Nitrogen 105*H, Creatinine 3.41H, Estimat Glomerular Filtration Rate 19, BUN/Creatinine Ratio 31, Glucose Level 232H, Calcium Level 8.8, Corrected Calcium 9.6, Total Bilirubin 1.1H, Aspartate Amino Transf (AST/SGOT) 31, Alanine Aminotransferase (ALT/SGPT) 23, Alkaline Phosphatase 104, Total Creatine Kinase 464H, Troponin I 0.33*H, Total Protein 9.0H, Albumin 3.0L 03/06/21 12:04: Lactic Acid Level 5.84*H, Magnesium Level 4.1H, Ammonia 54H, Serum Alcohol < 10 03/06/21 13:50: SARS-CoV-2 RNA (RT-PCR) Detected 03/06/21 14:25: Lactic Acid Level 3.36*H 03/06/21 15:00: Influenza Type A Antigen NEGATIVE, Influenza Type B Antigen NEGATIVE 03/06/21 17:35: D-Dimer 2.56H, Sodium Level 161*H, Potassium Level 5.4H, Chloride Level 127H, Carbon Dioxide Level 19L, Anion Gap 15H, Blood Urea Nitrogen 103*H, Creatinine 3.39H, Estimat Glomerular Filtration Rate 19, BUN/Creatinine Ratio 30, Glucose Level 175H, Lactic Acid Level 1.81, Calcium Level 8.0L, Troponin I 0.064H 03/06/21 18:28: Blood Gas Puncture Site RGT RAD, Blood Gas Patient Temperature 98.4, Arterial Blood pH 7.19*L, Arterial Blood Partial Pressure CO2 63H, Arterial Blood Partial Pressure O2 106H, Arterial Blood HCO3 23, Arterial Blood Total CO2 24.7, Arterial Blood Oxygen Saturation 96, Arterial Blood Base Excess -4.3L, Theodore Test POS, Blood Gas Ventilator Setting NO, Blood Gas Inspired Oxygen 8L 03/06/21 20:55: Blood Gas Puncture Site RT RAD, Blood Gas Patient Temperature 36.5, Arterial Blood pH 7.12*L, Arterial Blood Partial Pressure CO2 76*H, Arterial Blood Partial Pressure O2 108H, Arterial Blood HCO3 24, Arterial Blood Total CO2 26.4, Arterial Blood Oxygen Saturation 96, Arterial Blood Base Excess -4.3L, Theodore Test YES-POS, Blood Gas Ventilator Setting NO, Blood Gas Inspired Oxygen 75% BIPAP 03/06/21 23:20: Blood Gas Puncture Site RT RAD, Blood Gas Patient Temperature 36.5, Arterial Blood pH 7.21*L, Arterial Blood Partial Pressure CO2 55H, Arterial Blood Partial Pressure O2 83, Arterial Blood HCO3 21L, Arterial Blood Total CO2 23.0, Arterial Blood Oxygen Saturation 94, Arterial Blood Base Excess -5.5L, Theodore Test YES- POS, Blood Gas Ventilator Setting YES, Blood Gas Inspired Oxygen 50% 03/07/21 00:48: Glucometer 247H 03/07/21 03:15: Blood Gas Puncture Site RT ARTLINE, Blood Gas Patient Temperature 36.5, Arterial Blood pH 7.23*L, Arterial Blood Partial Pressure CO2 50H, Arterial Blood Partial Pressure O2 74L, Arterial Blood HCO3 20L, Arterial Blood Total CO2 21.8, Arterial Blood Oxygen Saturation 94, Arterial Blood Base Excess -6.2L, Theodore Test ARTLINE, Blood Gas Ventilator Setting YES, Blood Gas Inspired Oxygen 100%, White Blood Count 16.9H, Red Blood Count 4.61, Hemoglobin 13.6#, Hematocrit 48, Mean Corpuscular Volume 103H, Mean Corpuscular Hemoglobin 30, Mean Corpuscular Hemoglobin Concent 29L, Red Cell Distribution Width 14.6H, Platelet Count 366, Mean Platelet Volume 12.4H, Immature Granulocyte % (Auto) 1, Neutrophils (%) (Auto) 89H, Lymphocytes (%) (Auto) 6L, Monocytes (%) (Auto) 4, Eosinophils (%) (Auto) 0, Basophils (%) (Auto) 0, Neutrophils # (Auto) 15.1H, Lymphocytes # (Auto) 0.9L, Monocytes # (Auto) 0.7, Eosinophils # (Auto) 0.0, Basophils # (Auto) 0.0, Immature Granulocyte # (Auto) 0.1, Sodium Level 156H, Potassium Level 5.5H, Chloride Level 125H, Carbon Dioxide Level 20L, Anion Gap 11, Blood Urea Nitrogen 108*H, Creatinine 3.29H, Estimat Glomerular Filtration Rate 20, BUN/Creatinine Ratio 33, Glucose Level 230H, Calcium Level 7.5L, Corrected Calcium 8.8, Total Bilirubin 0.8, Aspartate Amino Transf (AST/SGOT) 24, Alanine Aminotransferase (ALT/SGPT) 18, Alkaline Phosphatase 63, Total Protein 6.9, Albumin 2.4L 03/07/21 05:27: Blood Gas Puncture Site R RAD, Blood Gas Patient Temperature 36.5, Arterial Blood pH 7.19*L, Arterial Blood Partial Pressure CO2 57H, Arterial Blood Partial Pressure O2 142H, Arterial Blood HCO3 21L, Arterial Blood Total CO2 23.1, Arterial Blood Oxygen Saturation 99, Arterial Blood Base Excess -5.7L, Theodore Test YES-POS, Blood Gas Ventilator Setting YES, Blood Gas Inspired Oxygen 50%, Sodium Level 156H, Potassium Level 5.8H, Chloride Level 125H, Carbon Dioxide Level 19L, Anion Gap 12, Blood Urea Nitrogen 106*H, Creatinine 3.30H, Estimat Glomerular Filtration Rate 20, BUN/Creatinine Ratio 32, Glucose Level 239H, Calcium Level 7.4L 03/07/21 08:17: Blood Gas Puncture Site R ART LINE, Blood Gas Patient Temperature 37.0, Arterial Blood pH 7.27*L, Arterial Blood Partial Pressure CO2 58H, Arterial Blood Partial Pressure O2 54L, Arterial Blood HCO3 26, Arterial Blood Total CO2 27.3, Arterial Blood Oxygen Saturation 85L, Arterial Blood Base Excess -0.6, Theodore Test ART LINE, Blood Gas Ventilator Setting YES, Blood Gas Inspired Oxygen 100% 03/07/21 11:23: Glucometer 202H Microbiology 03/06/21 Urine Culture - Preliminary, Resulted NO GROWTH Assessment/Plan Assessment/Plan Assessment/Plan Scrotal Ulcerations Respiratory Failure with Covid-19 positive IRASEMA Pt is severely ill, requiring pressors and has a very poor prognosis. My recommendation is just local wound care for the scrotum; dressing changes, non- stick dressing, keep area dry. No debridement at this time and can reassess if pt's outlook changes. RYANNE LORA DO Mar 07, 2021 11:58
[2021-03-07 12:33] LABS: POTASSIUM 4.6 MMOL/L (3.6-5.0)
[2021-03-07 12:35] LABS: CALCIUM 8.1 MG/DL (8.5-10.1)
[2021-03-07 12:39] LABS: CREATININE SERUM 3.09 MG/DL (0.60-1.30)
--- NOTE | 2021-03-07 13:12 | Consultation-Cardiology ---
HPI-Cardiology Cardiology Consultation Date of Consultation 03/07/21 Date of Admission Time Seen by Provider: 11:50 Indication: Hypotensive shock HPI Patient is sedated and intubated, unable to provide any history, history was obtained by reviewing his records. He was found confused in a hotel room covered in urine and feces. EMS were called and he was noted to be tachycardic with labored breathing, intubated, hypotensive, septic shock, had underlying diabetic foot ulcer and ulceration to his scrotum. Tested positive for COVID-19 Home Medications & Allergies Allergies: Coded Allergies: No Known Drug Allergies (Unverified , 09/23/16) Home Medication List Reviewed: Yes Unable to provide any history [id number] Hx Patient Social History Smoking Status: Never a Smoker 2nd Hand Smoke Exposure: No Recent Hopitalizations: No Have you traveled recently?: No Alcohol Use?: No Past Medical History Past medical history is unavailable due to his current condition Family Medical History Significant Family History: Psychiatric Problems Family History: Alcoholism 19 FATHER FH: bipolar disorder G8 BROTHER FH: mental illness 19 MOTHER FH: suicide 19 FATHER Review of Systems-General Review of Systems Constitutional: see HPI, other (Unable to provide review of system) EENTM: see HPI Respiratory: see HPI Cardiovascular: see HPI Gastrointestinal: see HPI Genitourinary: see HPI Musculoskeletal: see HPI Skin: see HPI Psychiatric/Neurological: See HPI All Other Systems Reviewed Negative Unless Noted: Yes Reviewed Test Results Reviewed Test Results Lab Laboratory Tests Test 03/06/21 13:50 03/06/21 14:25 03/06/21 15:00 03/06/21 17:35 Range/Units SARS-CoV-2 RNA (RT-PCR) Detected Negative Lactic Acid Level 3.36 *H 1.81 0.50-2.00 MMOL/L Influenza Type A Antigen NEGATIVE NEGATIVE Influenza Type B Antigen NEGATIVE NEGATIVE D-Dimer 2.56 H 0.00-0.49 UG/ML Sodium Level 161 *H 135-145 MMOL/L Potassium Level 5.4 H 3.6-5.0 MMOL/L Chloride Level 127 H 98-107 MMOL/L Carbon Dioxide Level 19 L 21-32 MMOL/L Anion Gap 15 H 5-14 MMOL/L Blood Urea Nitrogen 103 *H 7-18 MG/DL Creatinine 3.39 H 0.60-1.30 MG/DL Estimat Glomerular Filtration Rate 19 BUN/Creatinine Ratio 30 Glucose Level 175 H 70-105 MG/DL Calcium Level 8.0 L 8.5-10.1 MG/DL Troponin I 0.064 H <0.028 NG/ML Test 03/06/21 18:28 03/06/21 20:55 03/06/21 23:20 03/07/21 00:48 Range/Units Blood Gas Puncture Site RGT RAD RT RAD RT RAD Blood Gas Patient Temperature 98.4 36.5 36.5 Arterial Blood pH 7.19 *L 7.12 *L 7.21 *L 7.37-7.43 Arterial Blood Partial Pressure CO2 63 H 76 *H 55 H 35-45 MMHG Arterial Blood Partial Pressure O2 106 H 108 H 83 79-93 MMHG Arterial Blood HCO3 23 24 21 L 23-27 MMOL/L Arterial Blood Total CO2 24.7 26.4 23.0 21.0-31.0 MMOL/L Arterial Blood Oxygen Saturation 96 96 94 94-100 % Arterial Blood Base Excess -4.3 L -4.3 L -5.5 L -2.5-2.5 MMOL/L Theodore Test POS YES-POS YES-POS Blood Gas Ventilator Setting NO NO YES Blood Gas Inspired Oxygen 8L 75% BIPAP 50% Glucometer 247 H 70-110 MG/DL Test 03/07/21 03:15 03/07/21 05:27 03/07/21 08:17 03/07/21 11:23 Range/Units White Blood Count 16.9 H 4.3-11.0 10^3/uL Red Blood Count 4.61 4.30-5.52 10^6/uL Hemoglobin 13.6 # 13.3-17.7 g/dL Hematocrit 48 40-54 % Mean Corpuscular Volume 103 H 80-99 fL Mean Corpuscular Hemoglobin 30 25-34 pg Mean Corpuscular Hemoglobin Concent 29 L 32-36 g/dL Red Cell Distribution Width 14.6 H 10.0-14.5 % Platelet Count 366 130-400 10^3/uL Mean Platelet Volume 12.4 H 9.0-12.2 fL Immature Granulocyte % (Auto) 1 % Neutrophils (%) (Auto) 89 H 42-75 % Lymphocytes (%) (Auto) 6 L 12-44 % Monocytes (%) (Auto) 4 0-12 % Eosinophils (%) (Auto) 0 0-10 % Basophils (%) (Auto) 0 0-10 % Neutrophils # (Auto) 15.1 H 1.8-7.8 10^3/uL Lymphocytes # (Auto) 0.9 L 1.0-4.0 10^3/uL Monocytes # (Auto) 0.7 0.0-1.0 10^3/uL Eosinophils # (Auto) 0.0 0.0-0.3 10^3/uL Basophils # (Auto) 0.0 0.0-0.1 10^3/uL Immature Granulocyte # (Auto) 0.1 0.0-0.1 10^3/uL Blood Gas Puncture Site RT ARTLINE R RAD R ART LINE Blood Gas Patient Temperature 36.5 36.5 37.0 Arterial Blood pH 7.23 *L 7.19 *L 7.27 *L 7.37-7.43 Arterial Blood Partial Pressure CO2 50 H 57 H 58 H 35-45 MMHG Arterial Blood Partial Pressure O2 74 L 142 H 54 L 79-93 MMHG Arterial Blood HCO3 20 L 21 L 26 23-27 MMOL/L Arterial Blood Total CO2 21.8 23.1 27.3 21.0-31.0 MMOL/L Arterial Blood Oxygen Saturation 94 99 85 L 94-100 % Arterial Blood Base Excess -6.2 L -5.7 L -0.6 -2.5-2.5 MMOL/L Theodore Test ARTLINE YES-POS ART LINE Blood Gas Ventilator Setting YES YES YES Blood Gas Inspired Oxygen 100% 50% 100% Sodium Level 156 H 156 H 135-145 MMOL/L Potassium Level 5.5 H 5.8 H 3.6-5.0 MMOL/L Chloride Level 125 H 125 H 98-107 MMOL/L Carbon Dioxide Level 20 L 19 L 21-32 MMOL/L Anion Gap 11 12 5-14 MMOL/L Blood Urea Nitrogen 108 *H 106 *H 7-18 MG/DL Creatinine 3.29 H 3.30 H 0.60-1.30 MG/DL Estimat Glomerular Filtration Rate 20 20 BUN/Creatinine Ratio 33 32 Glucose Level 230 H 239 H 70-105 MG/DL Calcium Level 7.5 L 7.4 L 8.5-10.1 MG/DL Corrected Calcium 8.8 8.5-10.1 MG/DL Total Bilirubin 0.8 0.1-1.0 MG/DL Aspartate Amino Transf (AST/SGOT) 24 5-34 U/L Alanine Aminotransferase (ALT/SGPT) 18 0-55 U/L Alkaline Phosphatase 63 40-136 U/L Total Protein 6.9 6.4-8.2 GM/DL Albumin 2.4 L 3.2-4.5 GM/DL Glucometer 202 H 70-110 MG/DL Test 03/07/21 12:11 Range/Units Sodium Level 165 *H 135-145 MMOL/L Potassium Level 4.6 3.6-5.0 MMOL/L Chloride Level 124 H 98-107 MMOL/L Carbon Dioxide Level 26 21-32 MMOL/L Anion Gap 15 H 5-14 MMOL/L Blood Urea Nitrogen 96 H 7-18 MG/DL Creatinine 3.09 H 0.60-1.30 MG/DL Estimat Glomerular Filtration Rate 21 BUN/Creatinine Ratio 31 Glucose Level 256 H 70-105 MG/DL Calcium Level 8.1 L 8.5-10.1 MG/DL Physical Exam Physical Exam Vital Signs Vital Signs - First Documented 03/06/21 03/06/21 11:10 20:00 Pulse Ox 95 O2 Delivery Non Rebreather O2 Flow Rate 15.00 FiO2 75 Capillary Refill : Less Than 3 Seconds Height, Weight, BMI Height: 6'3.00" Weight: 340lbs. 0.0oz. 154.224596pb; 28.10 BMI Method: General Appearance: Moderate Distress, Other (Sedated and intubated) Eyes: Bilateral Eye Normal Inspection, Bilateral Eye PERRL, Bilateral Eye EOMI HEENT: PERRL/EOMI, Other (Sedated and intubated) Neck: Supple, Other (Surgical scar right neck) Respiratory: Decreased Breath Sounds, Rhonci Cardiovascular: Regular Rate, Rhythm Gastrointestinal: Soft Back: Normal Inspection Neurologic/Psychiatric: Other (Sedated and intubated) Skin: Other (Excoriations to thighs, ulcer to scrotum and diabetic pressure ulcer to right great toe pad) A/P-Cardiology Admission Diagnosis Sepsis Hypotensive shock Acute respiratory failure Acute renal failure Assessment/Plan Hypotensive shock, started on Levophed and dopamine, dependent on pressors. Labile blood pressure. Continue with aggressive hydration and monitor Sepsis, multifactorial, pneumonia, foot ulcer, scrotal ulcer. Metabolic acidosis, electrolyte imbalance. Receiving pressors and IV fluids, started on antibiotic. Continue to monitor Transient episode of bradycardia secondary to hypoxemia, episodes of tachycardia. Currently heart rate is stable. Continue to monitor Acute renal failure, receiving IV fluid. Continue to monitor renal function Electrolytes imbalance with metabolic acidosis, hyperkalemia, probably secondary to hypotensive shock. Continue with aggressive hydration monitor electrolytes closely Diabetic foot ulcer, scrotal ulcer. Receiving antibiotic. Local wound care Acute respiratory failure, ventilator dependent, COVID-19 pneumonia. Methamphetamine use 2D echo was done at bedside with technically difficult study, normal LV function, ejection fraction 50 to 55%, PA pressure 25 to 30 mmHg. No significant abnormality was noted. MICHAEL CORNEJO MD Mar 07, 2021 13:12
[2021-03-07] MEDS ORDERED: PIPERACILLIN SODIUM/TAZOBACTAM 4.5 GM in NS (IVPB) 100 ML IV ONE (13:38)
[2021-03-07 14:25] VITALS: BP 153/68
[2021-03-07 15:17] VITALS: BP 150/68
[2021-03-07] MEDS ORDERED: morphine INJ 10 MG/ML 1ML (SYR OR VIAL) IVP PRN ×2 (15:30→18:15)
[2021-03-07] MEDS ORDERED: LORazepam INJ 2 MG/ML (ATIVAN) VIAL IVP PRN ×2 (15:30→18:15)
--- NOTE | 2021-03-07 20:26 | Discharge Summary ---
Discharge Summary Hospital Course Was the Problem List Reviewed?: Yes Problems/Dx: (1) Multisystem organ failure (2) Renal failure (3) Methamphetamine intoxication Status: Acute (4) Encephalopathy acute Status: Acute (5) Pneumonia Status: Acute (6) Sepsis Status: Acute (7) Hypernatremia Status: Acute Hospital Course Date of Admission: Mar 06, 2021 at 15:45 Admission Diagnosis : Family Physician/Provider: Kj Valdes MD Date of Discharge: 03/07/21 Discharge Diagnosis: multi-system organ failure, renal failure, meth binge Hospital Course: see HPI. Short course in ICU and patient continued to decline and was terminally extubated and . Labs and Pending Lab Test: Laboratory Tests 03/06/21 20:55: Blood Gas Puncture Site RT RAD, Blood Gas Patient Temperature 36.5, Arterial Blood pH 7.12*L, Arterial Blood Partial Pressure CO2 76*H, Arterial Blood Partial Pressure O2 108H, Arterial Blood HCO3 24, Arterial Blood Total CO2 26.4, Arterial Blood Oxygen Saturation 96, Arterial Blood Base Excess -4.3L, Theodore Test YES-POS, Blood Gas Ventilator Setting NO, Blood Gas Inspired Oxygen 75% BIPAP 03/06/21 23:20: Blood Gas Puncture Site RT RAD, Blood Gas Patient Temperature 36.5, Arterial Blood pH 7.21*L, Arterial Blood Partial Pressure CO2 55H, Arterial Blood Partial Pressure O2 83, Arterial Blood HCO3 21L, Arterial Blood Total CO2 23.0, Arterial Blood Oxygen Saturation 94, Arterial Blood Base Excess -5.5L, Theodore Test YES- POS, Blood Gas Ventilator Setting YES, Blood Gas Inspired Oxygen 50% 03/07/21 00:48: Glucometer 247H 03/07/21 03:15: Blood Gas Puncture Site RT ARTLINE, Blood Gas Patient Temperature 36.5, Arterial Blood pH 7.23*L, Arterial Blood Partial Pressure CO2 50H, Arterial Blood Partial Pressure O2 74L, Arterial Blood HCO3 20L, Arterial Blood Total CO2 21.8, Arterial Blood Oxygen Saturation 94, Arterial Blood Base Excess -6.2L, Theodore Test ARTLINE, Blood Gas Ventilator Setting YES, Blood Gas Inspired Oxygen 100%, White Blood Count 16.9H, Red Blood Count 4.61, Hemoglobin 13.6#, Hematocrit 48, Mean Corpuscular Volume 103H, Mean Corpuscular Hemoglobin 30, Mean Corpuscular Hemoglobin Concent 29L, Red Cell Distribution Width 14.6H, Platelet Count 366, Mean Platelet Volume 12.4H, Immature Granulocyte % (Auto) 1, Neutrophils (%) (Auto) 89H, Lymphocytes (%) (Auto) 6L, Monocytes (%) (Auto) 4, Eosinophils (%) (Auto) 0, Basophils (%) (Auto) 0, Neutrophils # (Auto) 15.1H, Lymphocytes # (Auto) 0.9L, Monocytes # (Auto) 0.7, Eosinophils # (Auto) 0.0, Basophils # (Auto) 0.0, Immature Granulocyte # (Auto) 0.1, Sodium Level 156H, Potassium Level 5.5H, Chloride Level 125H, Carbon Dioxide Level 20L, Anion Gap 11, Blood Urea Nitrogen 108*H, Creatinine 3.29H, Estimat Glomerular Filtration Rate 20, BUN/Creatinine Ratio 33, Glucose Level 230H, Calcium Level 7.5L, Corrected Calcium 8.8, Total Bilirubin 0.8, Aspartate Amino Transf (AST/SGOT) 24, Alanine Aminotransferase (ALT/SGPT) 18, Alkaline Phosphatase 63, Total Protein 6.9, Albumin 2.4L 03/07/21 05:27: Blood Gas Puncture Site R RAD, Blood Gas Patient Temperature 36.5, Arterial Blood pH 7.19*L, Arterial Blood Partial Pressure CO2 57H, Arterial Blood Partial Pressure O2 142H, Arterial Blood HCO3 21L, Arterial Blood Total CO2 23.1, Arteri al Blood Oxygen Saturation 99, Arterial Blood Base Excess -5.7L, Theodore Test YES- POS, Blood Gas Ventilator Setting YES, Blood Gas Inspired Oxygen 50%, Sodium Level 156H, Potassium Level 5.8H, Chloride Level 125H, Carbon Dioxide Level 19L, Anion Gap 12, Blood Urea Nitrogen 106*H, Creatinine 3.30H, Estimat Glomerular Filtration Rate 20, BUN/Creatinine Ratio 32, Glucose Level 239H, Calcium Level 7.4L 03/07/21 08:17: Blood Gas Puncture Site R ART LINE, Blood Gas Patient Temperature 37.0, Arterial Blood pH 7.27*L, Arterial Blood Partial Pressure CO2 58H, Arterial Blood Partial Pressure O2 54L, Arterial Blood HCO3 26, Arterial Blood Total CO2 27.3, Arterial Blood Oxygen Saturation 85L, Arterial Blood Base Excess -0.6, Theodore Test ART LINE, Blood Gas Ventilator Setting YES, Blood Gas Inspired Oxygen 100% 03/07/21 11:23: Glucometer 202H 03/07/21 12:11: Sodium Level 165*H, Potassium Level 4.6, Chloride Level 124H, Carbon Dioxide Level 26, Anion Gap 15H, Blood Urea Nitrogen 96H, Creatinine 3.09H, Estimat Glomerular Filtration Rate 21, BUN/Creatinine Ratio 31, Glucose Level 256H, Calcium Level 8.1L Microbiology 03/06/21 Gram Stain - Final, Resulted 03/06/21 Sputum Culture, Resulted Pending 03/06/21 Urine Culture - Final, Complete NO GROWTH 03/06/21 Blood Culture - Preliminary, Resulted No growth Home Meds Active No Active Prescriptions or Reported Medications Assessment/Pt Instructions Discharge Planning: <30 minutes discharge planning Discharge Physical Examination Vital Signs Vital Signs Date Time Temp Pulse Resp B/P (MAP) Pulse Ox O2 Delivery O2 Flow Rate FiO2 03/07/21 17:00 107 23 93 Mechanical Ventilator 100.00 03/07/21 16:02 100 03/06/21 20:23 36.6 Allergies: Coded Allergies: No Known Drug Allergies (Unverified , 09/23/16) Discharge Summary Date of Admission Mar 06, 2021 at 15:45 Date of Discharge Comfort Measures/ End of Life Care: Comfort Measures NATE QIU DO Mar 07, 2021 20:26
--- NOTE | 2021-03-07 20:48 | Procedure/Intervention Note ---
Procedures/Interventions Lumen: triple Position: internal jugular (L) Anesthesia: local Volume Anesthetic (ccs): 5 Complications: none Post Position: sutured, good blood return, position confirmed w/ CXR Called ICU by general house worker last night 03/06/2021 at about 10:30 PM for additional IV access in the form of central line. Date of ETT Placement: Mar 06, 2021 Time of ETT Placement: 2143 Intubation Method: orotracheal Tube Size: 7.50 Medications: Etomidate, Rocuronium Positive End Tide CO2: Yes Breath Sounds after Intubation: bilateral-equal Intubation Complications: no complications Post Intubation Xray: Yes LANNY MARINO APRN Mar 07, 2021 20:48
[2021-03-08] MEDS ORDERED: inSUlin (REGULAR) HUMAN 1 UNIT/0.01 ML (CHARGE PER UNIT) IV ONE (08:15)
== END 2021-03-07 18:13 | disposition expired | DRG 871 ==
LOC: EDUNIT# 11:10 → ER FS 11:11 → ICU 15:45
PROVIDERS: ADMIT Internal Medicine; ATTEND Internal Medicine
PROC: 5A1935Z Respiratory Ventilation, Less than 24 Consecutive Hours (ICD-10-PCS; principal; 2021-03-06)
PROC: 0BH17EZ Insertion of Endotracheal Airway into Trachea, Via Natural or Artificial Opening (ICD-10-PCS; 2021-03-06)
DX: A41.89 Other specified sepsis (principal); U07.1 COVID-19; J12.82 Pneumonia due to coronavirus disease 2019; J96.01 Acute respiratory failure with hypoxia; R65.21 Severe sepsis with septic shock; G93.41 Metabolic encephalopathy; N17.9 Acute kidney failure, unspecified; E87.0 Hyperosmolality and hypernatremia; E87.4 Mixed disorder of acid-base balance; Z66 Do not resuscitate; Z51.5 Encounter for palliative care; E86.0 Dehydration; N50.89 Other specified disorders of the male genital organs; E11.621 Type 2 diabetes mellitus with foot ulcer; E11.65 Type 2 diabetes mellitus with hyperglycemia; L97.519 Non-pressure chronic ulcer of other part of right foot with unspecified severity; E87.5 Hyperkalemia; F41.9 Anxiety disorder, unspecified; F32.A Depression, unspecified; Z79.52 Long term (current) use of systemic steroids; F15.129 Other stimulant abuse with intoxication, unspecified
CPT/HCPCS: 36415; 70450; 71045; 80048; 80053; 80306; 80320; 81000; 82140; 82550; 82805; 82947; 83605; 83735; 84484; 85007; 85025; 85027; 85379; 85610; 85730; 87040; 87070; 87077; 87081; 87088; 87186; 87205; 87636; 87804; 93005; 93308; 94002; 94003; 94640; 94660; 94799; 99291